=== PATIENT | female | born 1945 | race Caucasian/White ===

== ENCOUNTER 2017-11-03 16:52 | Inpatient (IN) ==
--- NOTE | 2017-11-03 18:00 | Emergency Department Note ---
Disposition Clinical Impression: Anemia, Leukocytosis, Bandemia, Renal injury, Liver lesion, Elevated troponin, Pericardial effusion without cardiac tamponade, Thrombocytosis, Bacteriuria, Generalized weakness Disposition: Admitted As Inpatient Condition: Fair Referrals: Juliana Leal MD [Primary Care Provider] - Forms: ED Satisfaction Letter General Adult HPI - General Chief complaint: ED Dizziness Stated complaint: Multiple complaints Time Seen by Provider: 11/03/17 17:53 - History of Present Illness Pain Scale: 0 - Related Data Home Medications Medication Instructions Recorded Confirmed Acetaminophen [Pain Reliever] 1,000 mg PO BID 11/03/17 11/03/17 Ascorbate Calcium [Vitamin C] 500 mg PO DAILY 11/03/17 11/03/17 Aspirin [Lo-Dose Aspirin EC] 81 mg PO DAILY 11/03/17 11/03/17 Calcium Carbonate [Calcium] 600 mg PO DAILY 11/03/17 11/03/17 Gluc 2Kcl/Chondr/Laurence Hy/Hy AC 2 cap PO BID 11/03/17 11/03/17 [Glucosamine & Chondroitin Cap] Multivitamin [One Daily Essential] 1 tab PO DAILY 11/03/17 11/03/17 Allergies Allergy/AdvReac Type Severity Reaction Status Date / Time cephalexin Allergy Hives Verified 04/13/16 10:56 Past Medical History - Past Medical History Medical history: Reports: arthritis, other Psychiatric history: Reports: no psych history OUTSIDE OPERATOR history: Reports: no OUTSIDE OPERATOR history - Social History Smoking Status: Never smoker Smokeless Tobacco Status: No Alcohol use: Reports: occasionally Drug use: Reports: none Course Vital Signs Temperature 97.5 F L 11/03/17 16:55 Pulse Rate 106 11/03/17 16:55 Respiratory Rate 20 11/03/17 16:55 Blood Pressure 150/74 11/03/17 16:55 O2 Sat by Pulse Oximetry 99 11/03/17 16:55 Temperature 97.5 F L 11/03/17 18:47 Pulse Rate 114 11/03/17 20:50 Respiratory Rate 18 11/03/17 20:50 Blood Pressure 148/80 11/03/17 20:50 O2 Sat by Pulse Oximetry 96 11/03/17 20:50 Oxygen Delivery Oxygen Delivery Room Air Medical Decision Making - Lab Data Result diagrams: 11/03/17 19:24 11/03/17 19:24 Lab Results 11/03/17 11/03/17 11/03/17 Range/Units 19:00 19:14 19:24 WBC 24.7 H (4.3-11.1) K/mcL RBC 2.45 L (3.82-4.97) M/mcL Hgb 7.3 L (11.5-15.4) g/dL Hct 22.5 L (35.3-44.9) % MCV 91.8 (83.0-100.0) fL MCH 29.8 (28.0-33.3) pg MCHC 32.4 (31.6-35.5) g/dL RDW 16.0 H (11.5-14.5) % Plt Count 600 H (140-400) K/mcL MPV 9.5 (9.4-12.4) fL Seg Neutrophils % 86.0 % Band Neutrophils % 6.0 H (0-4) % Lymphocytes % 2.0 % Monocytes % 6.0 % Neutrophils # 22.7 H (1.6-8.9) K/mcL Lymphocytes # 0.5 L (0.6-4.6) K/mcL Monocytes # 1.5 H (0.0-1.3) K/mcL Nucleated RBCs/100 WBC 0.1 H (0) /100 WBC Platelet Estimate Increased H (Normal) Hypochromasia Present A (Not Present) Macrocytosis Present A (Not Present) Sodium (136-145) mEq/L Potassium (3.5-5.1) mEq/L Chloride (98-107) mEq/L Carbon Dioxide (23-29) mEq/L BUN (8-23) mg/dL Creatinine (0.60-1.20) mg/dL Est GFR ( Amer) (> 60) Est GFR (Non-Af Amer) (> 60) BUN/Creatinine Ratio (6-26) Glucose (70-105) mg/dL POC Glucose 126 H (70-99) mg/dL Calculated Osmolality (280-300) Calcium (8.6-10.3) mg/dL Magnesium (1.6-2.6) mg/dL Total Bilirubin (0.3-1.0) mg/dL AST (13-39) Units/L ALT (7-52) Units/L Alkaline Phosphatase (34-104) Units/L Troponin I (< 0.04) ng/mL Serum Total Protein (6.4-8.9) g/dL Albumin (3.5-5.7) g/dL Globulin (2.4-3.5) g/dL Albumin/Globulin Ratio (1.1-2.2) Urine Color Dark Yellow (Yellow) Urine Clarity Hazy A (Clear) Urine pH 5.0 (5.0-8.0) pH Units Ur Specific [place] 1.024 (1.010-1.025) Urine Protein 100 H (Neg-Trace) mg/dL Urine Glucose (UA) Normal (Normal) mg/dL Urine Ketones Trace H (Negative) mg/dL Urine Blood Negative (Negative) Urine Nitrite Negative (Negative) Urine Bilirubin Small H (Negative) Urine Urobilinogen Normal (Normal) mg/dL Ur Leukocyte Esterase Small H (Negative) Urine Microscopic WBC 5-15 H (0-3) per hpf Ur Squamous Epith Cells Many H (None-Few) per lpf Urine Bacteria Moderate H (None-Few) per hpf Hyaline Casts Few (None-Few) per lpf 11/03/17 Range/Units 19:24 WBC (4.3-11.1) K/mcL RBC (3.82-4.97) M/mcL Hgb (11.5-15.4) g/dL Hct (35.3-44.9) % MCV (83.0-100.0) fL MCH (28.0-33.3) pg MCHC (31.6-35.5) g/dL RDW (11.5-14.5) % Plt Count (140-400) K/mcL MPV (9.4-12.4) fL Seg Neutrophils % % Band Neutrophils % (0-4) % Lymphocytes % % Monocytes % % Neutrophils # (1.6-8.9) K/mcL Lymphocytes # (0.6-4.6) K/mcL Monocytes # (0.0-1.3) K/mcL Nucleated RBCs/100 WBC (0) /100 WBC Platelet Estimate (Normal) Hypochromasia (Not Present) Macrocytosis (Not Present) Sodium 132 L (136-145) mEq/L Potassium 4.4 (3.5-5.1) mEq/L Chloride 95 L (98-107) mEq/L Carbon Dioxide 23 (23-29) mEq/L BUN 36 H (8-23) mg/dL Creatinine 1.96 H (0.60-1.20) mg/dL Est GFR ( Amer) 30 L (> 60) Est GFR (Non-Af Amer) 25 L (> 60) BUN/Creatinine Ratio 18 (6-26) Glucose 128 H (70-105) mg/dL POC Glucose (70-99) mg/dL Calculated Osmolality 284 (280-300) Calcium 9.6 (8.6-10.3) mg/dL Magnesium 2.2 (1.6-2.6) mg/dL Total Bilirubin 0.6 (0.3-1.0) mg/dL AST 32 (13-39) Units/L ALT 32 (7-52) Units/L Alkaline Phosphatase 183 H (34-104) Units/L Troponin I 0.06 H* (< 0.04) ng/mL Serum Total Protein 7.2 (6.4-8.9) g/dL Albumin 3.3 L (3.5-5.7) g/dL Globulin 3.9 H (2.4-3.5) g/dL Albumin/Globulin Ratio 0.8 L (1.1-2.2) Urine Color (Yellow) Urine Clarity (Clear) Urine pH (5.0-8.0) pH Units Ur Specific [place] (1.010-1.025) Urine Protein (Neg-Trace) mg/dL Urine Glucose (UA) (Normal) mg/dL Urine Ketones (Negative) mg/dL Urine Blood (Negative) Urine Nitrite (Negative) Urine Bilirubin (Negative) Urine Urobilinogen (Normal) mg/dL Ur Leukocyte Esterase (Negative) Urine Microscopic WBC (0-3) per hpf Ur Squamous Epith Cells (None-Few) per lpf Urine Bacteria (None-Few) per hpf Hyaline Casts (None-Few) per lpf Attestation Statement - Attestation Attestation: I examined this patient and my medical decision-making was reviewed with the Resident Physician. I agree with the documented findings, disposition and treatment plan as described except to the extent set forth below. [id number] time provided Patient states she feels today similar to the way she felt several months ago when she required admission/transfer for weakness, pericardial effusion, elevated troponin, UTI, possible sepsis, anemia. She feels off balance. She appears generally weak on exam. Triage note and vitals reviewed by me. Labs dated 09/19/17 reviewed by me during the patient's most recent ED visit. She states she does have a liver biopsy scheduled in 2 days 20:40: Lab results reviewed by me. I also reviewed the transcribed report of the patient's CT abdomen and pelvis obtained during her most recent ED visit. I also reviewed the discharge summary from her recent transfer to [facility]. Today the patient has multiple laboratory analysis including ongoing renal insufficiency, leukocytosis, anemia, thrombocytosis. Given her recent liver findings on CT I do have a concern for an underlying malignancy. The resident physician discussed this case with the on-call oncologist. We will plan to admit to the medicine service for further evaluation and management
--- NOTE | 2017-11-03 18:24 | Emergency Department Note ---
Disposition Clinical Impression: Bandemia, Liver lesion, Elevated troponin, Pericardial effusion without cardiac tamponade, Thrombocytosis, Bacteriuria, Generalized weakness Anemia Qualifiers: Anemia type: unspecified type Qualified Code(s): D64.9 - Anemia, unspecified Leukocytosis Qualifiers: Leukocytosis type: unspecified Qualified Code(s): D72.829 - Elevated white blood cell count, unspecified Renal injury Qualifiers: Encounter type: initial encounter Laterality: unspecified laterality Qualified Code(s): S37.009A - Unspecified injury of unspecified kidney, initial encounter Disposition: Admitted As Inpatient Condition: Fair Referrals: Juliana Leal MD [Primary Care Provider] - Forms: ED Satisfaction Letter General Adult HPI - General Chief complaint: ED Dizziness Stated complaint: Multiple complaints Time Seen by Provider: 11/03/17 17:53 Source: patient Mode of arrival: wheelchair Limitations: no limitations Nursing Notes Reviewed: Yes Vital Signs Reviewed: Yes - History of Present Illness HPI Narrative: 72-year-old female who until a proximally 6 weeks ago do not have significant past medical history. At that time she presented due to increasing fatigue and was found to have a pericardial effusion, elevated troponin, anemia and a urinary tract infection. She was transferred to [facility]. Unclear what the diagnosis was at [facility] and she was discharged home. They did eventually find a lesion on the liver and she is scheduled later this week for a biopsy of the liver lesion. She presented to the ER today because she is still having continued fatigue and last night at about 3 AM she went to the bathroom and reports that she was "staggering about "and she fell on the ground. She lost control of her bowel and bladder. She states she remembers the entire event. She did not have generalized tonic-clonic movement. She has just been laying on the couch since that time and her called her primary care physician who requested that she come to the emergency department. She has not had a fever and she states that she otherwise feels fine aside from generalized fatigue. She did not hit her head and does not have a headache. Radiation: non-radiation Pain Scale: 0 Consistency: constant Improves with: nothing Worsens with: nothing Associated symptoms: Reports: denies other symptoms Treatments Prior to Arrival: none - Related Data Home Medications Medication Instructions Recorded Confirmed Acetaminophen [Pain Reliever] 1,000 mg PO BID 11/03/17 11/03/17 Ascorbate Calcium [Vitamin C] 500 mg PO DAILY 11/03/17 11/03/17 Aspirin [Lo-Dose Aspirin EC] 81 mg PO DAILY 11/03/17 11/03/17 Calcium Carbonate [Calcium] 600 mg PO DAILY 11/03/17 11/03/17 Gluc 2Kcl/Chondr/Laurence Hy/Hy AC 2 cap PO BID 11/03/17 11/03/17 [Glucosamine & Chondroitin Cap] Multivitamin [One Daily Essential] 1 tab PO DAILY 11/03/17 11/03/17 Allergies Allergy/AdvReac Type Severity Reaction Status Date / Time cephalexin Allergy Hives Verified 04/13/16 10:56 All systems ED: reviewed and negative except as stated. Constitutional: Denies: fever Cardiovascular: Denies: chest pain Respiratory: Denies: cough Gastrointestinal: Denies: abdominal pain, nausea, vomiting Musculoskeletal: Denies: back pain Integumentary: Denies: rash Endocrine: Reports: fatigue Past Medical History - Past Medical History Medical history: Reports: arthritis, other Psychiatric history: Reports: no psych history HOSPITAL MEDICINE DIRECTOR history: Reports: no HOSPITAL MEDICINE DIRECTOR history - Social History Smoking Status: Never smoker Smokeless Tobacco Status: No Alcohol use: Reports: occasionally Drug use: Reports: none Physical Exam - General Limitations: no limitations General appearance: alert, in distress - Head Head exam: atraumatic - Eye Eye exam: Present: normal appearance, PERRL - ENT ENT exam: normal exam - Neck Neck exam: Present: normal inspection - Chest Chest inspection: Present: normal inspection - Respiratory Respiratory exam: Present: normal lung sounds bilaterally. Absent: respiratory distress - Cardiovascular Cardiovascular exam: Present: normal rhythm, tachycardia - Abdominal Exam Abdominal exam: Present: soft, Non-Tender - Extremities Exam Extremities exam: Present: normal inspection - Back Exam Back exam: Present: normal inspection - Neurological Exam Neurological exam: Present: alert, oriented X3 - Skin Skin exam: Present: warm, dry Course Course Narrative: Multiple abnormality seen on her lab work. Troponin is mildly elevated but is significantly less than before. EKG WNL aside from mild tachycardia. No BRBPR. HGB is low, platelets are high, WBC is high, creatinine is high. Bacteria is present on UA, but no other signs of UTI. She denies dysuria. Moderate bacteria, 5-15 WBC. Will culture and not empirically treat. Will not transfuse currently as she states she feels fine, not actively bleeding. Spoke with oncology who will see the patient tomorrow. They request a CT of the chest with contrast if possible tomorrow if her creatinine improves with hydration. Spoke with the hospitalists accept the patient Will make NPO after midnight in case biopsy procedure is moved up. Vital Signs Temperature 97.5 F L 11/03/17 16:55 Pulse Rate 106 11/03/17 16:55 Respiratory Rate 20 11/03/17 16:55 Blood Pressure 150/74 11/03/17 16:55 O2 Sat by Pulse Oximetry 99 11/03/17 16:55 Temperature 97.5 F L 11/03/17 18:47 Pulse Rate 112 11/03/17 19:14 Respiratory Rate 18 11/03/17 19:14 Blood Pressure 165/88 11/03/17 19:14 O2 Sat by Pulse Oximetry 98 11/03/17 19:14 Oxygen Delivery Oxygen Delivery Room Air Medical Decision Making - Medical Records Medical records reviewed: Yes I reviewed the patient's medical records. - Lab Data Lab results reviewed: Yes I reviewed the patient's lab results. Result diagrams: 11/03/17 19:24 11/03/17 19:24 Lab Results 11/03/17 11/03/17 11/03/17 Range/Units 19:00 19:14 19:24 WBC 24.7 H (4.3-11.1) K/mcL RBC 2.45 L (3.82-4.97) M/mcL Hgb 7.3 L (11.5-15.4) g/dL Hct 22.5 L (35.3-44.9) % MCV 91.8 (83.0-100.0) fL MCH 29.8 (28.0-33.3) pg MCHC 32.4 (31.6-35.5) g/dL RDW 16.0 H (11.5-14.5) % Plt Count 600 H (140-400) K/mcL MPV 9.5 (9.4-12.4) fL Nucleated RBCs/100 WBC 0.1 H (0) /100 WBC Sodium (136-145) mEq/L Potassium (3.5-5.1) mEq/L Chloride (98-107) mEq/L Carbon Dioxide (23-29) mEq/L BUN (8-23) mg/dL Creatinine (0.60-1.20) mg/dL Est GFR ( Amer) (> 60) Est GFR (Non-Af Amer) (> 60) BUN/Creatinine Ratio (6-26) Glucose (70-105) mg/dL POC Glucose 126 H (70-99) mg/dL Calculated Osmolality (280-300) Calcium (8.6-10.3) mg/dL Magnesium (1.6-2.6) mg/dL Total Bilirubin (0.3-1.0) mg/dL AST (13-39) Units/L ALT (7-52) Units/L Alkaline Phosphatase (34-104) Units/L Troponin I (< 0.04) ng/mL Serum Total Protein (6.4-8.9) g/dL Albumin (3.5-5.7) g/dL Globulin (2.4-3.5) g/dL Albumin/Globulin Ratio (1.1-2.2) Urine Color Dark Yellow (Yellow) Urine Clarity Hazy A (Clear) Urine pH 5.0 (5.0-8.0) pH Units Ur Specific [place] 1.024 (1.010-1.025) Urine Protein 100 H (Neg-Trace) mg/dL Urine Glucose (UA) Normal (Normal) mg/dL Urine Ketones Trace H (Negative) mg/dL Urine Blood Negative (Negative) Urine Nitrite Negative (Negative) Urine Bilirubin Small H (Negative) Urine Urobilinogen Normal (Normal) mg/dL Ur Leukocyte Esterase Small H (Negative) Urine Microscopic WBC 5-15 H (0-3) per hpf Ur Squamous Epith Cells Many H (None-Few) per lpf Urine Bacteria Moderate H (None-Few) per hpf Hyaline Casts Few (None-Few) per lpf 11/03/17 Range/Units 19:24 WBC (4.3-11.1) K/mcL RBC (3.82-4.97) M/mcL Hgb (11.5-15.4) g/dL Hct (35.3-44.9) % MCV (83.0-100.0) fL MCH (28.0-33.3) pg MCHC (31.6-35.5) g/dL RDW (11.5-14.5) % Plt Count (140-400) K/mcL MPV (9.4-12.4) fL Nucleated RBCs/100 WBC (0) /100 WBC Sodium 132 L (136-145) mEq/L Potassium 4.4 (3.5-5.1) mEq/L Chloride 95 L (98-107) mEq/L Carbon Dioxide 23 (23-29) mEq/L BUN 36 H (8-23) mg/dL Creatinine 1.96 H (0.60-1.20) mg/dL Est GFR ( Amer) 30 L (> 60) Est GFR (Non-Af Amer) 25 L (> 60) BUN/Creatinine Ratio 18 (6-26) Glucose 128 H (70-105) mg/dL POC Glucose (70-99) mg/dL Calculated Osmolality 284 (280-300) Calcium 9.6 (8.6-10.3) mg/dL Magnesium 2.2 (1.6-2.6) mg/dL Total Bilirubin 0.6 (0.3-1.0) mg/dL AST 32 (13-39) Units/L ALT 32 (7-52) Units/L Alkaline Phosphatase 183 H (34-104) Units/L Troponin I 0.06 H* (< 0.04) ng/mL Serum Total Protein 7.2 (6.4-8.9) g/dL Albumin 3.3 L (3.5-5.7) g/dL Globulin 3.9 H (2.4-3.5) g/dL Albumin/Globulin Ratio 0.8 L (1.1-2.2) Urine Color (Yellow) Urine Clarity (Clear) Urine pH (5.0-8.0) pH Units Ur Specific [place] (1.010-1.025) Urine Protein (Neg-Trace) mg/dL Urine Glucose (UA) (Normal) mg/dL Urine Ketones (Negative) mg/dL Urine Blood (Negative) Urine Nitrite (Negative) Urine Bilirubin (Negative) Urine Urobilinogen (Normal) mg/dL Ur Leukocyte Esterase (Negative) Urine Microscopic WBC (0-3) per hpf Ur Squamous Epith Cells (None-Few) per lpf Urine Bacteria (None-Few) per hpf Hyaline Casts (None-Few) per lpf - Radiology Data Radiology results reviewed: Yes I reviewed the patient's radiology results. - EKG Data EKG #1 EKG shows normal: sinus rhythm Rate: tachycardia Rhythm: NSR [place]/QRS: normal Interpretation: no acute changes
[2017-11-03 19:27] LABS: Bilirubin,Urine Small (Negative); Blood,Urine Negative (Negative); Color,Urine Dark Yellow (Yellow); Glucose,Urine (UA) Normal (Normal); Ketones,Urine Trace mg/dL (Negative); Leukocyte Esterase,Urine Small (Negative); Nitrite,Urine Negative (Negative); Protein,Urine 100 mg/dL (Neg-Trace); Specific Gravity,Urine 1.024 (1.010-1.025); Urobilinogen,Urine Normal (Normal)
[2017-11-03 19:30] LABS: Hyaline Casts,Urine Few per lpf (None-Few); Squamous Epithelial Cell,Urine Many per lpf (None-Few)
[2017-11-03 19:51] LABS: Clarity,Urine Hazy (Clear)
[2017-11-03 19:58] LABS: Albumin 3.3 g/dL (3.5-5.7); Albumin/Globulin Ratio 0.8 (1.1-2.2); Bilirubin,Total 0.6 mg/dL (0.3-1.0); Calcium 9.6 mg/dL (8.6-10.3); Globulin 3.9 g/dL (2.4-3.5); Magnesium 2.2 mg/dL (1.6-2.6); Potassium 4.4 mEq/L (3.5-5.1); Total Protein 7.2 g/dL (6.4-8.9)
[2017-11-03 20:00] LABS: Troponin I 0.06 ng/mL (< 0.04)
[2017-11-03 20:03] LABS: Hematocrit 22.5 % (35.3-44.9); Mean Corpuscular HGB Conc 32.4 g/dL (31.6-35.5); Mean Corpuscular Hemoglobin 29.8 pg (28.0-33.3); Mean Corpuscular Volume 91.8 fL (83.0-100.0); Mean Platelet Volume 9.5 fL (9.4-12.4); Monocytes # 1.5 K/mcL (0.0-1.3); Nucleated Red Blood Cells 0.1 /100 WBC (0); Platelet Count 600 K/mcL (140-400); Red Blood Count 2.45 M/mcL (3.82-4.97)
[2017-11-03 20:15] LABS: Hemoglobin 7.3 g/dL (11.5-15.4)
[2017-11-03 20:23] LABS: Bacteria,Urine Moderate per hpf (None-Few)
[2017-11-03 20:38] LABS: Lymphocytes # 0.5 K/mcL (0.6-4.6); Neutrophils # 22.7 K/mcL (1.6-8.9)
[2017-11-03 20:39] LABS: Hypochromasia Present (Not Present); Macrocytosis Present (Not Present); Platelet Estimate Increased (Normal)
[2017-11-03] MEDS ORDERED: 0.9 % Sodium Chloride 500 ML IVC ONE (21:05)
[2017-11-03] MEDS: 0.9 % Sodium Chloride 1,000 ML IVC SCH (22:00)
[2017-11-04 06:46] LABS: Basophils % 0.1 %; Hematocrit 20.2 % (35.3-44.9); Hemoglobin 6.7 g/dL (11.5-15.4); Immature Granulocytes % 0.9 % (0-4); Lymphocytes # 0.8 K/mcL (0.6-4.6); Lymphocytes % 3.5 %; Mean Corpuscular HGB Conc 33.2 g/dL (31.6-35.5); Mean Corpuscular Hemoglobin 30.5 pg (28.0-33.3); Mean Corpuscular Volume 91.8 fL (83.0-100.0); Mean Platelet Volume 9.5 fL (9.4-12.4); Monocytes # 1.9 K/mcL (0.0-1.3); Monocytes % 8.7 %; Neutrophils # 18.9 K/mcL (1.6-8.9); Platelet Count 474 K/mcL (140-400); Red Cell Distribution Width 16.3 % (11.5-14.5); Segmented Neutrophils % 86.8 %
[2017-11-04 07:07] LABS: Albumin 2.8 g/dL (3.5-5.7); Albumin/Globulin Ratio 0.8 (1.1-2.2); Bilirubin,Total 0.7 mg/dL (0.3-1.0); Calcium 8.7 mg/dL (8.6-10.3); Globulin 3.3 g/dL (2.4-3.5); Potassium 4.2 mEq/L (3.5-5.1); Total Protein 6.1 g/dL (6.4-8.9)
[2017-11-04 07:21] LABS: Troponin I 0.04 ng/mL (< 0.04)
--- NOTE | 2017-11-04 08:05 | Internal Med History&Physical ---
Date of Encounter: 11/04/17 Time of Encounter: 03:00 Internal Medicine - H&P: HPI Chief complaint: "Weakness" Admitted From: Emergency Dept Plans for Post Hospital Care: Home History of present illness: Ms. Brendan Collins is a 72 year old female who presented to ED with several week history of generalized weakness. She was last admitted here a little while ago , and during that admission had to be transferred to [facility] for sepsis secondary to UTI. Per patient and , her infection was treated and she was discharged home. She followed up with PCP who got CT abdomen/pelvis, which showed multiple liver lesions. She was scheduled for liver biopsy next. She came to ED today because fatigue is worse and after going to bathroom at 3 AM had a syncopal like episodes. Per she became incontinent of bladder and bowel. She denies LOC. She denies fever, chills, chest pain, SOB, nausea, vomiting, abdominal pain, or diarrhea. She has no focal deficits, just subacute generalized malaise. In the ED, workup showed leukocytosis, anemia, thrombocytopenia, and SATYA. Weakness was a little improved by the time I saw her. ED physician has consulted heme/onc. Past Med Surg Social Fam HX - Past Medical History Attestation: Yes The following information was validated with the patient. Medical history: arthritis, other Psychiatric history: no psych history - Past Surgical History Surgical History: no surgical history - Social History Smoking Status: Never smoker Smokeless Tobacco Status: No Alcohol use: occasionally Drug use: none - Additional Family History Additional family history: No family history per patient Internal Medicine - H&P: Meds Acetaminophen [Pain Reliever] 1,000 mg PO BID 11/03/17 [History] Ascorbate Calcium [Vitamin C] 500 mg PO DAILY 11/03/17 [History] Aspirin [Lo-Dose Aspirin EC] 81 mg PO DAILY 11/03/17 [History] Calcium Carbonate [Calcium] 600 mg PO DAILY 11/03/17 [History] Gluc 2Kcl/Chondr/Laurence Hy/Hy AC [Glucosamine & Chondroitin Cap] 2 cap PO BID [History] Multivitamin [One Daily Essential] 1 tab PO DAILY 11/03/17 [History] 3 Allergy/AdvReac Type Severity Reaction Status Date / Time cephalexin Allergy Hives Verified 04/13/16 10:56 All Systems PM: A 10-system review of systems was performed and is negative for pertinent findings except as documented above in the HPI. - Constitutional Constitutional: fatigue, falls, lethargy, malaise, weakness, no anorexia, no chills, no fever(s), no night sweats, no weight gain, no weight loss - EENT Eyes: no blurry vision, no diplopia, no discharge, no dry eye, no loss of vision , no pain, no photophobia, no other visual disturbances Ears: no decreased hearing, no ear pain, no tinnitus Nose, mouth and throat: no dry mouth, no dysphagia, no epistaxis, no mouth lesions, no mouth pain, no nasal congestion, no nasal discharge, no neck mass, no neck pain, no post-nasal drip, no sinus pain, no sinus pressure, no sore throat - Breasts Breasts: no change in shape, no mass, no pain, no nipple discharge, no skin changes - Cardiovascular Cardiovascular ROS IM: lightheadedness, no chest pain, no claudication, no diaphoresis, no dyspnea, no dyspnea on exertion, no edema, no palpitations, no syncope - Respiratory Respiratory: no cough, no dyspnea, no hemoptysis, no dyspnea on exertion, no wheezing, no chest congestion, no excessive phlegm production - Gastrointestinal Gastrointestinal: no abdominal pain, no change in bowel habits, no coffee ground emesis, no constipation, no cramping, no diarrhea, no dysphagia, no heartburn, no hematemesis, no hematochezia, no loose stools, no melena, no nausea, no vomiting - Genitourinary Genitourinary: no dysuria, no flank pain, no hematuria, no urinary frequency, no urinary hesitancy, no urinary incontinence, no urinary urgency - Musculoskeletal Musculoskeletal ROS IM: no arthralgias, no atrophy, no back pain, no deformity, no joint swelling, no limited range of motion, no muscle cramps, no muscle weakness, no myalgias, no neck pain, no stiffness - Integumentary Integumentary IM: no erythema, no new lesions, no rash, no skin ulcer, no jaundice - Neurological Neurological ROS: dizziness, frequent falls, weakness, no abnormal gait, no abnormal hearing, no abnormal movements, no abnormal speech, no behavioral changes, no confusion, no focal weakness, no headache(s), no vertigo - Psychiatric Psychiatric: no anxiety, no behavioral changes, no confusion, no depression, no irritability, no mood swings - Endocrine Endocrine IM: fatigue, no cold intolerance, no heat intolerance, no polydipsia, no polyphagia, no polyuria - Hematologic/Lymphatic Hematologic/Lymphatic: no easy bleeding, no easy bruising, no lymphadenopathy - Constitutional Vitals: Temp Pulse Resp BP Pulse Ox 98.3 F 110 14 162/79 98 11/04/17 06:31 11/04/17 06:31 11/04/17 06:31 11/04/17 06:31 11/04/17 06:31 General appearance: Present: cooperative, A&O X 3, pleasant, no acute distress, answers questions appropriately - Head Head exam: Present: atraumatic, normal inspection, normocephalic - Eye Eye exam: Present: EOMI, normal appearance, PERRL. Absent: conjunctival injection, nystagmus, scleral icterus - ENT ENT exam: Present: mucous membranes moist, normal external ear exam, normal oropharynx - Neck Neck exam general surgery: Present: supple, trachea midline. Absent: lymphadenopathy, tenderness, thyromegaly - Respiratory Respiratory exam: Present: CTAB. Absent: accessory muscle use, rales, rhonchi, wheezes Additional comments: Normal WOB - Cardiovascular Cardiovascular exam: Present: RRR, +S1, +S2. Absent: diastolic murmur, gallop, rubs, systolic murmur - GI/Abdominal GI/Abdominal exam: Present: normal bowel sounds, soft. Absent: distended, hepatomegaly, mass, splenomegaly, tenderness - Neurological Exam Neurological exam: Present: alert, CN II-XII intact, oriented X3, no focal deficits, strengths equal and symetr throughout. Absent: altered, motor sensory deficit, facial droop, speech deficit - Psychiatric Psychiatric exam: Present: normal affect, normal mood. Absent: agitated, anxious, depressed - Skin Skin exam: Present: dry, intact, warm. Absent: cyanosis, rash Internal Med - H&P Results - Labs CBC & Chem 7: 11/04/17 06:25 11/04/17 06:25 - VTE Reasons for not Prescribing Prophylaxis: Medical contraindication (Anemia, Thrombocytopenia) - Assessment and plan (1) Generalized weakness Current Visit: Yes Status: Acute Assessment and plan: Subacute issue. May be multifactorial and related to her blood dyscrasias, SATYA , and/or ?cancer. Addressing underlying conditions as per below. (2) Anemia Current Visit: Yes Status: Acute Assessment and plan: Repeat CBC in AM. Transfuse if Hgb < 7.0. Heme/onc consulted; appreciate their input. Qualifiers: Anemia type: other cause Other causes of anemia: other cause, not classified Qualified Code(s): D64.89 - Other specified anemias (3) Elevated troponin Current Visit: Yes Status: Acute Assessment and plan: No chest pain. Trend troponin x 3. Continue to monitor. (4) Leukocytosis Current Visit: Yes Status: Acute Assessment and plan: Heme/onc consulted; appreciate their input. Qualifiers: Leukocytosis type: other Qualified Code(s): D72.828 - Other elevated white blood cell count (5) Liver lesion Current Visit: Yes Status: Acute Assessment and plan: Heme/onc consulted; appreciate their input. ED physician already consulted IR for possible biopsy of liver lesions. Will keep NPO until they see. (6) Pericardial effusion without cardiac tamponade Current Visit: Yes Status: Acute Assessment and plan: Will monitor. Elevated troponin may be due to this. Will observe overnight and consider cardiology/CT surgery consult in morning if no improvement and/or progression to tamponade. (7) Thrombocytosis Current Visit: Yes Status: Acute Assessment and plan: Heme/onc consulted; appreciate their input. - Time Spent With Patient Total time spent is greater than 50% in coordination of care (as documented) at patient's floor/unit and/or counseling patient: less than 15 minutes
[2017-11-04 08:26] LABS: INR 1.5; Prothrombin Time 15.8 Seconds (9.4-12.1)
[2017-11-04] MEDS: Aspirin Enteric Coated 81 MG Tablet PO SCH (08:42)
[2017-11-04] MEDS: [UNRECOGNIZED DRUG - OTHER] PO SCH (08:49)
--- NOTE | 2017-11-04 08:50 | Electrocardiograph Report ---
[facility] Test Date: 2017-11-03 Pat Name: Livia Collins Department: 103 Room: 2S7 Gender: F [employer]: : [id number] Requested By: Robbin Brown Order Number: [id number] Reading MD: Jamil Grimes Measurements Intervals [place] Rate: 111 P: 0 LA: 132 QRS: -40 QRSD: 97 T: 82 QT: 289 QTc: 354 Interpretive Statements SINUS TACHYCARDIA MARKED LEFT AXIS DEVIATION [QRS AXIS < -30] LEFT VENTRICULAR HYPERTROPHY AND ST-T CHANGE [VOLTAGE CRITERIA PLUS ST/T ABNORMALITY] Electronically Signed On 11-04-2017 8:48:10 EDT by Jamil Grimes
[2017-11-04] MEDS ORDERED: 0.9 % Sodium Chloride 500 ML ONE (09:18)
[2017-11-04] MEDS ORDERED: *HR* FentaNYL (PF) 100 MCG/2 ML VIAL IVP ONE (09:19)
[2017-11-04] MEDS ORDERED: *HR* Midazolam HCl 2 MG/2 ML VIAL IVP ONE (09:19)
--- NOTE | 2017-11-04 10:12 | IR Procedure Note ---
Date of procedure: 11/04/17 Consent Obtained: Verbal consent, Written consent Timeout: Correct patient and procedure verified, Correct site verified, Time out performed, Skin prep completed Local anesthetic: Lidocaine 1% Indications: Liver mass Procedure Performed: CT guided biopsy and drain placement Was there an rehabilitation assistant present: No Site/Technique: CT guided hepatic mass biopsy and drainage Results/Findings: large hepatic abscess. 12 Sami drain placed Estimated blood loss (cc): 2 Complications: None; Tolerated procedure well Post Procedure Treatment Plan: Continue inpatient care Specimen: 100 cc pus
[2017-11-04] MEDS ORDERED: Ibuprofen 400 MG TABLET PO PRN (10:45)
[2017-11-04] MEDS ORDERED: Naloxone 0.4 MG/ML INJ IVP PRN (10:45)
[2017-11-04] MEDS ORDERED: *HR* OxyCODONE Immed Rel 5 MG TABLET PO PRN (10:45)
[2017-11-04] MEDS ORDERED: *HR* HYDROcodone/Acet 5/325 mg TABLET PO PRN (10:45)
[2017-11-04] MEDS: Multivit/Ca/Min/Fe/FA 1 TAB TABLET PO SCH (12:44)
[2017-11-04] MEDS: Ascorbic Acid 500 MG TABLET PO SCH (12:44)
[2017-11-04] MEDS: Piperacillin/Tazobactam 3.375 GM in 0.9 % Sodium Chloride Mini Bag 100 ML IVPB SCH ×2 (12:44→18:17)
[2017-11-04] MEDS ORDERED: 0.9 % Sodium Chloride 250 ML ONE (13:49)
--- NOTE | 2017-11-04 15:17 | Internal Med Progress Note ---
Date of Encounter: 11/04/17 Time of Encounter: 15:17 - Assessment and plan (1) Pyogenic liver abscess Current Visit: Yes Status: Acute Assessment and plan: Cultures are pending. Currently on IV Zosyn. Appreciate ID input. Oxycodone added for pain control from the drain. Further plan following results of studies from today. (2) Severe sepsis Current Visit: Yes Status: Acute Assessment and plan: Currently afebrile. WBC increased. BP has been stable. On IV Zosyn and cultures pending. (3) Anemia Current Visit: Yes Status: Acute Assessment and plan: Hemoglobin 6.7 today. Blood transfusion ordered. Some blood noted in drain. Stool guiac ordered as well. Qualifiers: Anemia type: other cause Other causes of anemia: other cause, not classified Qualified Code(s): D64.89 - Other specified anemias (4) Pericardial effusion without cardiac tamponade Current Visit: Yes Status: Acute Assessment and plan: No evidence of tamponade at this time. Following. (5) Thrombocytosis Current Visit: Yes Status: Acute Assessment and plan: Reactive. (6) Generalized weakness Current Visit: Yes Status: Acute Assessment and plan: Most likely related to infection. - Time Spent With Patient Total time spent is greater than 50% in coordination of care (as documented) at patient's floor/unit and/or counseling patient: - Subjective Interval history: Ms Brendan Collins is currently admitted for liver abscess and severe sepsis. She remains moderate to high risk due to potential for worsening clinical status. Ms Brendan Collins is having pain from the liver drain. Had temp this AM but none further. Blood cx done this. Studies from liver abscess pending. No CP or SOB. No other symptoms. - Constitutional Vitals: Temp Pulse Resp BP Pulse Ox 98.8 F 95 18 139/70 92 11/04/17 12:23 11/04/17 12:23 11/04/17 12:23 11/04/17 12:23 11/04/17 12:23 General appearance: Present: cooperative, A&O X 3, pleasant, answers questions appropriately - Head Head exam: Present: normocephalic - Eye Eye exam: Present: conjuntiva pink - ENT ENT exam: Present: mucous membranes dry - Respiratory Respiratory exam: Present: CTAB. Absent: rales, rhonchi, wheezes - Cardiovascular Cardiovascular exam: Present: RRR. Absent: tachycardia - GI/Abdominal GI/Abdominal exam: Present: soft, tenderness - Extremities Exam Extremities exam: Present: warm. Absent: tenderness - Neurological Exam Neurological exam: Present: alert, oriented X3, no focal deficits - Skin Skin exam: Present: dry, warm Internal Medicine: Result - Labs CBC & Chem 7: 11/04/17 06:25 11/04/17 06:25 Labs: Cardiac Enzymes 11/04/17 Range/Units 11:41 Troponin I 0.03 (< 0.04) ng/mL - ABG Interpretation ABG results: PT/INR, D-dimer PT 15.8 Seconds (9.4-12.1) H 11/04/17 07:49 - Impressions Impressions Chest X-Ray 11/04/17 08:46 IMPRESSION: No radiographic evidence of consolidative pneumonia. D/ / 11/04/2017 09:25:52 Rohit Mccullough MD / [email or web address] Interpreting Provider: Rohit Mccullough MD - VTE Reasons for not Prescribing Prophylaxis: Medical contraindication (Anemia, Thrombocytopenia) Consult Discharge Plan - Plan Referrals: Juliana Leal MD [Primary Care Provider] -
[2017-11-04] MEDS ORDERED: OXYCODONE Oral CONC 10 MG/0.5 ML ORAL.SYG SL PRN (15:18)
--- NOTE | 2017-11-04 15:28 | Infectious Disease Consult ---
Date of Encounter: 11/04/17 Time of Encounter: 15:27 Assessment and Plan (1) Pyogenic liver abscess Status: Acute Assessment and plan: Initially seen on his CT abdomen and pelvis in September [address] scan reveals worsening of the lesion Status post drainage and biopsy by IR on 11/01/17 100 mL of purulence removed Gram stain reveals no organism: Cultures are pending Patient started empirically on Zosyn. This is a pyogenic liver abscess I would expect some bacteria to grow specially 100 mL of purulence. The fact the Gram stain and bacteria are not growing makes me concerned for amoebic liver abscess versus Echinococcus Patient does have 4 dogs so it does put her at some risk. I will discuss with radiology and if they think there is a Hydatid cysts , there is an index of suspicion I will order for amoeba serology and Echinococcus serology. Await pathology report on Continue Zosyn for now Dose adjust based on creatinine clearance: Pharmacy to help (2) Severe sepsis Status: Acute Assessment and plan: Patient had 3 SIRS criteria and and organ damage Likely source is pyogenic liver abscess (3) Pericardial effusion without cardiac tamponade Status: Acute (4) Thrombocytosis Status: Acute Assessment and plan: Likely reactive (5) CAD (coronary artery disease) Status: Acute Qualifiers: Coronary Disease-Associated Artery/Lesion type: unspecified vessel or lesion type Associated angina: with unspecified angina Qualified Code(s): I25.119 - Atherosclerotic heart disease of [place] coronary artery with unspecified angina pectoris Infectious Disease HPI - Data of Consult Patient: new to practice Consult date: 11/04/17 Requesting Physician: Gricelda Gutierrez MD Primary Care Provider: Juliana Leal - Consult Narrative Reason for consult: liver abscess History of present illness: Ms. Brendan Collins is a 72 year old female Patient is a 72-year-old woman who presented to [facility] emergency department on November 03 with weakness, we are consult at today for liver abscess. Patient with past medical history mentioned below was seen by our emergency department back on November 19 where she was feeling weak and tired and had sepsis. He should also had mildly elevated hepatic enzymes acute kidney injury and troponin leak. Patient had chest x-ray which was negative, had a head CT which was negative and a VQ scan had low probability of a PE. Patient had a CT abdomen pelvis which showed moderate pericardial effusion. Patient also had a 5.8 cm liver lesion with uncertain etiology because the patient had no contrast. It also revealed nonobstructive bilateral renal stones. Patient was transferred to [facility] for further evaluation. Reviewing records from [facility] reveals the patient was admitted with sepsis likely secondary to urinary tract infection. Patient had urine and blood cultures both which came back negative. Patient urine culture from [facility] emergency department was positive for Klebsiella species that was resistant to ampicillin and intermediate to nitrofurantoin. Patient was discharged from [facility] on ciprofloxacin to finish a 10 day course. Patient apparently was followed up by her PCP and had a repeat CT abdomen pelvis which showed multiple liver lesions. Apparently patient woke up at 3 AM to use the bathroom and she had a syncopal-like episode. Patient also became incontinent of bladder and bowel. Apparently there was no loss of conscious. There was no headache, no chest pain no palpitations. Patient had no fevers or chills. No shortness of breath. No nausea vomiting abdominal pain or diarrhea. No urinary symptoms. Since admission patient has been febrile with a MAXIMUM TEMPERATURE of 101.6 Fahrenheit patient has also been tachycardic with a heart rate as high as 113. Patient presenting WBC was 24.7 thousand with 86% neutrophils and 6 finish send bands. Patient was also noted to be in acute kidney injury with creatinine up to 1.96 a urinalysis was obtained and it showed small leukocyte esterase WBC of 5-[address] abdomen pelvis revealed a large hepatic mass that was evaluated by interventional radiology and they drained it and put her KATHE drain in. 100 mL of purulence was aspirated. Cultures were sent. Gram stain on the fluid shows no bacteria. Cultures are still pending. Pathology is also pending. Patient was started on Zosyn, we were asked to evaluate the patient think further recommendations. Patient laying in bed appears pretty lethargic. I am not sure if he just received some pain medications. She is getting a blood transfusion. Not the best historian. She does tell me that she has 4 dogs at home. Denies any recent travel. CC: Gricelda Gutierrez MD Past Med Surg Social Fam HX - Past Medical History Medical history: arthritis, other Psychiatric history: no psych history - Past Surgical History Surgical History: no surgical history - Social History Smoking Status: Never smoker Smokeless Tobacco Status: No Alcohol use: occasionally Drug use: none Infectious Disease-CN:Meds Acetaminophen [Pain Reliever] 1,000 mg PO BID 11/03/17 [History] Ascorbate Calcium [Vitamin C] 500 mg PO DAILY 11/03/17 [History] Aspirin [Lo-Dose Aspirin EC] 81 mg PO DAILY 11/03/17 [History] Calcium Carbonate [Calcium] 600 mg PO DAILY 11/03/17 [History] Gluc 2Kcl/Chondr/Laurence Hy/Hy AC [Glucosamine & Chondroitin Cap] 2 cap PO BID [History] Multivitamin [One Daily Essential] 1 tab PO DAILY 11/03/17 [History] 3 Allergy/AdvReac Type Severity Reaction Status Date / Time cephalexin Allergy Hives Verified 04/13/16 10:56 Review of systems: 10 point review of systems done, negative other for what is mentioned in history of present illness. Exam - Constitutional Vitals: Temp Pulse Resp BP Pulse Ox 98.8 F 95 18 139/70 92 11/04/17 12:23 11/04/17 12:23 11/04/17 12:23 11/04/17 12:23 11/04/17 12:23 General appearance: no acute distress, no febrile - Head Head exam: Present: atraumatic, normocephalic - Eye Eye exam: Present: EOMI, PERRL, sclera anicteric - ENT ENT exam: Present: mucous membranes dry Additional comments: No oral lesions noted - Neck Neck exam: Present: full ROM. Absent: thyromegaly - Respiratory Respiratory exam: Present: CTAB. Absent: wheezes - Cardiovascular Cardiovascular exam: Present: RRR, +S1, +S2 - GI/Abdominal Additional comments: Nontender. Bowel sounds audible. KATHE drain right upper abdomen noted with bloody drainage - Extremities Exam Extremities exam: Present: normal inspection. Absent: joint swelling, pedal edema - Neurological Exam Neurological exam: Present: alert, oriented X3. Absent: speech deficit - Skin Skin exam: Present: normal color. Absent: rash Infectious Disease CN: Results - Labs CBC & Chem 7: 11/04/17 06:25 11/04/17 06:25 Cultures: Cultures 11/04/17 07:00 Body Fluid Culture - Preliminary Other-Specify in Comments Serology: Serology 11/04/17 11/04/17 Range/Units 11:41 07:49 PT 15.8 H (9.4-12.1) Seconds INR 1.5 Troponin I 0.03 (< 0.04) ng/mL - VTE Reasons for not Prescribing Prophylaxis: Medical contraindication (Anemia, Thrombocytopenia) Consult Discharge Plan - Plan Referrals: Juliana Leal MD [Primary Care Provider] -
[2017-11-04] MEDS: 0.9 % Sodium Chloride 1,000 ML IVC SCH (15:38)
[2017-11-04] MEDS: OXYCODONE Oral CONC 10 MG/0.5 ML ORAL.SYG SL PRN (18:17)
--- NOTE | 2017-11-04 20:58 | Event Note ---
Date of Encounter: 11/04/17 Time of Encounter: 20:07 Was paged by nurse about troponin of 0.04. No chest pain. Patient has no complaints. I went down and saw patient. She states that she is doing "fine." Last troponin was 0.03, but admission troponin was 0.06. Looks adynamic and she has non-cardiac reasons for elevation. Will monitor closely. Addressed all of patient's and family's questions. There are in agreement with plan of care.
[2017-11-05] MEDS: [UNRECOGNIZED DRUG - OTHER] PO SCH ×3 (00:28→22:18)
[2017-11-05 01:15] LABS: Basophils % 0.1 %; Hematocrit 23.8 % (35.3-44.9); Hemoglobin 7.5 g/dL (11.5-15.4); Immature Granulocytes % 0.5 % (0-4); Lymphocytes # 0.6 K/mcL (0.6-4.6); Lymphocytes % 3.6 %; Mean Corpuscular HGB Conc 31.5 g/dL (31.6-35.5); Mean Corpuscular Volume 91.9 fL (83.0-100.0); Mean Platelet Volume 9.4 fL (9.4-12.4); Monocytes # 0.5 K/mcL (0.0-1.3); Monocytes % 2.8 %; Platelet Count 496 K/mcL (140-400); Red Blood Count 2.59 M/mcL (3.82-4.97); Red Cell Distribution Width 16.1 % (11.5-14.5)
[2017-11-05 01:20] LABS: Neutrophils # 15.5 K/mcL (1.6-8.9)
[2017-11-05 01:34] LABS: Albumin 2.5 g/dL (3.5-5.7); Albumin/Globulin Ratio 0.7 (1.1-2.2); Bilirubin,Total 1.6 mg/dL (0.3-1.0); Calcium 8.5 mg/dL (8.6-10.3); Globulin 3.4 g/dL (2.4-3.5); Magnesium 2.2 mg/dL (1.6-2.6); Potassium 4.4 mEq/L (3.5-5.1); Total Protein 5.9 g/dL (6.4-8.9)
[2017-11-05 01:38] LABS: Platelet Estimate Increased (Normal)
[2017-11-05 01:39] LABS: Hypochromasia Present (Not Present); Polychromasia 1+ (Not Present)
[2017-11-05] MEDS: Piperacillin/Tazobactam 3.375 GM in 0.9 % Sodium Chloride Mini Bag 100 ML IVPB SCH ×3 (02:33→17:05)
[2017-11-05] MEDS: 0.9 % Sodium Chloride 1,000 ML IVC SCH ×3 (02:34→22:28)
[2017-11-05] MEDS: OXYCODONE Oral CONC 10 MG/0.5 ML ORAL.SYG SL PRN (02:49)
--- NOTE | 2017-11-05 08:38 | Internal Med Progress Note ---
<Sam Castaneda - Last Filed: 11/05/17 16:28> Date of Encounter: 11/05/17 Time of Encounter: 08:25 - Assessment and plan (1) Severe sepsis Current Visit: Yes Status: Acute Assessment and plan: Severe sepsis, improved She did experience MAXIMUM TEMPERATURE 102.1 Remained with normal heart rate and normal blood pressure overnight Draining serosanguineous fluid per wound, no obvious purulence Continue Zosyn (2) Pyogenic liver abscess Current Visit: Yes Status: Acute Assessment and plan: Cultures are pending. Currently on IV Zosyn. Appreciate ID input. Oxycodone added for pain control from the drain. (3) Pericardial effusion without cardiac tamponade Current Visit: Yes Status: Acute Assessment and plan: No evidence of tamponade at this time. Following. (4) Anemia Current Visit: Yes Status: Acute Assessment and plan: Hemoglobin 7.5 today Recieved 1U PRBC yesterday, no acute complications There is serosanguinous fluid per drain We will order labs to workup anemia tonight Qualifiers: Anemia type: other cause Other causes of anemia: other cause, not classified Qualified Code(s): D64.89 - Other specified anemias (5) Thrombocytosis Current Visit: Yes Status: Acute Assessment and plan: Reactive, improved (6) Generalized weakness Current Visit: Yes Status: Acute Assessment and plan: Most likely related to infection, but also lack of food Ordered nutrition consult (7) Poor appetite Current Visit: Yes Status: Acute Assessment and plan: Poor appetite, likely secondary to infection Consult to nutrition for supplementation Ensure TID (8) DVT prophylaxis Current Visit: Yes Status: Acute - Time Spent With Patient Total time spent is greater than 50% in coordination of care (as documented) at patient's floor/unit and/or counseling patient: - Subjective Interval history: The patient is seen and examined at bedside. She remains nauseated without any appetite. She otherwise is feeling somewhat better, and says that her pain is well controlled. - Constitutional Vitals: Temp Pulse Resp BP Pulse Ox 97.8 F 77 17 104/58 97 11/05/17 06:49 11/05/17 06:49 11/05/17 06:49 11/05/17 06:49 11/05/17 06:49 General appearance: Present: cooperative, A&O X 3, pleasant, answers questions appropriately Exam: Gen: Vitals noted. No acute distress. HEENT: oropharynx clear, Normocephalic, atraumatic Neck: Supple. No adenopathy. Cardiac: RRR, no murmur, +S1/S2 Pulmonary: CTA bilaterally, no wheezes, rales or rhonchi, equal chest expansion Abdomen: soft, nontender, no guarding Back: Nontender throughout. MSK: ROM intact, no joint swelling noted Extremities: no BLE edema, nontender calf, no cyanosis or clubbing Neuro: moves all extremities, no focal deficits Psych: Appropriate mood and behavior Internal Medicine: Result - Labs CBC & Chem 7: 11/05/17 01:05 11/05/17 01:05 Labs: Short CBC 11/05/17 Range/Units 01:05 WBC 16.7 H (4.3-11.1) K/mcL Hgb 7.5 L (11.5-15.4) g/dL Hct 23.8 L (35.3-44.9) % Plt Count 496 H (140-400) K/mcL Neutrophils # 15.5 H (1.6-8.9) K/mcL BMP 11/05/17 01:05 Sodium 133 L Potassium 4.4 Chloride 102 Carbon Dioxide 21 L BUN 32 H Creatinine 1.70 H Glucose 123 H Calcium 8.5 L Cardiac Enzymes 11/04/17 11/04/17 Range/Units 11:41 18:46 Troponin I 0.03 0.04 H* (< 0.04) ng/mL Liver Function 11/05/17 Range/Units 01:05 Total Bilirubin 1.6 H (0.3-1.0) mg/dL AST 21 (13-39) Units/L ALT 26 (7-52) Units/L Alkaline Phosphatase 160 H (34-104) Units/L Albumin 2.5 L (3.5-5.7) g/dL - ABG Interpretation ABG results: PT/INR, D-dimer PT 15.8 Seconds (9.4-12.1) H 11/04/17 07:49 - Impressions Impressions Chest X-Ray 11/04/17 08:46 IMPRESSION: No radiographic evidence of consolidative pneumonia. D/ / 11/04/2017 09:25:52 Rohit Mccullough MD / bcarter Interpreting Provider: Rohit Mccullough MD - VTE Reasons for not Prescribing Prophylaxis: Medical contraindication (Anemia, Thrombocytopenia) Consult Discharge Plan - Plan Referrals: Juliana Leal MD [Primary Care Provider] - <Hugh Herrera - Last Filed: 11/05/17 19:09> Date of Encounter: 11/05/17 - Assessment and plan (1) Pyogenic liver abscess Current Visit: Yes Status: Acute (2) Severe sepsis Current Visit: Yes Status: Acute (3) Anemia Current Visit: Yes Status: Acute Qualifiers: Anemia type: other cause Other causes of anemia: other cause, not classified Qualified Code(s): D64.89 - Other specified anemias (4) Pericardial effusion without cardiac tamponade Current Visit: Yes Status: Acute (5) Thrombocytosis Current Visit: Yes Status: Acute (6) Generalized weakness Current Visit: Yes Status: Acute (7) Poor appetite Current Visit: Yes Status: Acute (8) DVT prophylaxis Current Visit: Yes Status: Acute - Time Spent With Patient Total time spent is greater than 50% in coordination of care (as documented) at patient's floor/unit and/or counseling patient: - Constitutional Vitals: Temp Pulse Resp BP Pulse Ox 97.6 F 82 16 109/62 97 11/05/17 15:58 11/05/17 15:58 11/05/17 15:58 11/05/17 15:58 11/05/17 15:58 Internal Medicine: Result - Labs CBC & Chem 7: 11/05/17 01:05 11/05/17 01:05 Labs: Short CBC 11/05/17 Range/Units 01:05 WBC 16.7 H (4.3-11.1) K/mcL Hgb 7.5 L (11.5-15.4) g/dL Hct 23.8 L (35.3-44.9) % Plt Count 496 H (140-400) K/mcL Neutrophils # 15.5 H (1.6-8.9) K/mcL BMP 11/05/17 01:05 Sodium 133 L Potassium 4.4 Chloride 102 Carbon Dioxide 21 L BUN 32 H Creatinine 1.70 H Glucose 123 H Calcium 8.5 L Cardiac Enzymes 11/04/17 Range/Units 18:46 Troponin I 0.04 H* (< 0.04) ng/mL Liver Function 11/05/17 Range/Units 01:05 Total Bilirubin 1.6 H (0.3-1.0) mg/dL AST 21 (13-39) Units/L ALT 26 (7-52) Units/L Alkaline Phosphatase 160 H (34-104) Units/L Albumin 2.5 L (3.5-5.7) g/dL - ABG Interpretation ABG results: PT/INR, D-dimer PT 15.8 Seconds (9.4-12.1) H 11/04/17 07:49 - Impressions Impressions Chest X-Ray 11/04/17 08:46 IMPRESSION: No radiographic evidence of consolidative pneumonia. D/ / 11/04/2017 09:25:52 Rohit Mccullough MD / fab Interpreting Provider: Rohit Mccullough MD - Attending Attestation I examined this patient and my medical decision-making was reviewed with the Resident Physician on 11/05/17. I agree with the documented findings, disposition and treatment plan as described except to the extent set forth below. Ms Brendan Collins is currently admitted for liver abscess. She remains moderate to high risk due to potential for worsening clinical status. Ms Brendan Collins had fever last night but none today. She is overall feeling better. No GI issues. Appetite fair. Exam alert Comfortable Mucus membranes dry Heart reg No wheeze still with drainage from liver I/P 1. Severe sepsis 2. Liver abscess Further diagnoses and plan as above.
[2017-11-05] MEDS: Multivit/Ca/Min/Fe/FA 1 TAB TABLET PO SCH (10:40)
[2017-11-05] MEDS: Aspirin Enteric Coated 81 MG Tablet PO SCH (10:40)
[2017-11-05] MEDS: Ascorbic Acid 500 MG TABLET PO SCH (10:40)
--- NOTE | 2017-11-05 17:29 | Infectious Disease Progress No ---
Date of Encounter: 11/05/17 Time of Encounter: 17:25 - Assessment and Plan (1) Pyogenic liver abscess Current Visit: Yes Status: Acute Initially seen on his CT abdomen and pelvis in September [address] scan reveals worsening of the lesion Status post drainage and biopsy by IR on 11/01/17 100 mL of purulence removed Gram stain reveals no organism: Cultures are pending Patient started empirically on Zosyn. This is a pyogenic liver abscess I would expect some bacteria to grow specially 100 mL of purulence. The fact the Gram stain and bacteria are not growing makes me concerned for amoebic liver abscess versus Echinococcus I did speak with pathology and they saw some atypical cells but final pathology is pending. I also asked them to and Gram stain, GMS and AFB. I also reviewed the CT with radiology to see if the patient had obvious hydatid cyst but they said it does not appear that way. Patient does have 4 dogs so it does put her at some risk. I check Echinococcus serology, Entamoeba histolytica serology and antigen Await pathology report on Continue Zosyn for now Dose adjust based on creatinine clearance: Pharmacy to help (2) Severe sepsis Current Visit: Yes Status: Acute Patient had 3 SIRS criteria and and organ damage Likely source is pyogenic liver abscess (3) Pericardial effusion without cardiac tamponade Current Visit: Yes Status: Acute (4) Thrombocytosis Current Visit: Yes Status: Acute (5) CAD (coronary artery disease) Current Visit: Yes Status: Acute Qualifiers: Coronary Disease-Associated Artery/Lesion type: unspecified vessel or lesion type Associated angina: with unspecified angina Qualified Code(s): I25.119 - Atherosclerotic heart disease of [place] coronary artery with unspecified angina pectoris - Subjective Interval history: Patient seen and examined. Doing much better clinically today. Yesterday she was very groggy today she is arousable pleasant on the phone with no signs of acute distress. Patient tells me that she has lost about 15 pounds in the last 2-1/2 months. Weight loss was not intentional. Infect Dis PN-Objective Data - Labs CBC & Chem 7: 11/05/17 01:05 11/05/17 01:05 Labs: Laboratory Results - last 24 hr 11/04/17 11/04/17 11/04/17 07:53 11:41 18:46 WBC RBC Hgb Hct MCV MCH MCHC RDW Plt Count MPV Immature Gran % Seg Neutrophils % Lymphocytes % Monocytes % Eosinophils % Basophils % Neutrophils # Lymphocytes # Monocytes # Eosinophils # Basophils # Platelet Estimate Polychromasia Hypochromasia Sodium Potassium Chloride Carbon Dioxide BUN Creatinine Est GFR ( Amer) Est GFR (Non-Af Amer) BUN/Creatinine Ratio Glucose POC Glucose 122 H Calculated Osmolality Calcium Magnesium Total Bilirubin AST ALT Alkaline Phosphatase Troponin I 0.04 H* Serum Total Protein Albumin Globulin Albumin/Globulin Ratio Crossmatch See Detail 11/05/17 11/05/17 01:05 01:05 WBC 16.7 H RBC 2.59 L Hgb 7.5 L Hct 23.8 L MCV 91.9 MCH 29.0 MCHC 31.5 L RDW 16.1 H Plt Count 496 H MPV 9.4 Immature Gran % 0.5 Seg Neutrophils % 93.0 Lymphocytes % 3.6 Monocytes % 2.8 Eosinophils % 0.0 Basophils % 0.1 Neutrophils # 15.5 H Lymphocytes # 0.6 Monocytes # 0.5 Eosinophils # 0.0 Basophils # 0.0 Platelet Estimate Increased H Polychromasia 1+ A Hypochromasia Present A Sodium 133 L Potassium 4.4 Chloride 102 Carbon Dioxide 21 L BUN 32 H Creatinine 1.70 H Est GFR ( Amer) 36 L Est GFR (Non-Af Amer) 30 L BUN/Creatinine Ratio 19 Glucose 123 H POC Glucose Calculated Osmolality 284 Calcium 8.5 L Magnesium 2.2 Total Bilirubin 1.6 H AST 21 ALT 26 Alkaline Phosphatase 160 H Troponin I Serum Total Protein 5.9 L Albumin 2.5 L Globulin 3.4 Albumin/Globulin Ratio 0.7 L Crossmatch Cultures: Cultures 11/04/17 07:00 Body Fluid Culture - Preliminary Other-Specify in Comments - Impressions Impressions Chest X-Ray 11/04/17 08:46 IMPRESSION: No radiographic evidence of consolidative pneumonia. D/ / 11/04/2017 09:25:52 Rohit Mccullough MD / [email or web address] Interpreting Provider: Rohit Mccullough MD Exam - Constitutional Vitals: Temp Pulse Resp BP Pulse Ox 97.6 F 82 16 109/62 97 11/05/17 15:58 11/05/17 15:58 11/05/17 15:58 11/05/17 15:58 11/05/17 15:58 General appearance: no acute distress, no febrile - Head Head exam: Present: atraumatic, normocephalic - Respiratory Respiratory exam: Present: CTAB. Absent: respiratory distress, wheezes - Cardiovascular Cardiovascular exam: Present: RRR, +S1, +S2 - GI/Abdominal GI/Abdominal exam: Present: soft. Absent: tenderness Additional comments: KATHE drain right upper quadrant intact - Extremities Exam Extremities exam: Present: full ROM. Absent: pedal edema - VTE Reasons for not Prescribing Prophylaxis: Medical contraindication (Anemia, Thrombocytopenia) Consult Discharge Plan - Plan Referrals: Juliana Leal MD [Primary Care Provider] -
[2017-11-06] MEDS: Piperacillin/Tazobactam 3.375 GM in 0.9 % Sodium Chloride Mini Bag 100 ML IVPB SCH ×3 (03:28→18:59)
[2017-11-06] MEDS: 0.9 % Sodium Chloride 1,000 ML IVC SCH ×2 (04:10→08:38)
[2017-11-06 05:20] LABS: Albumin 2.3 g/dL (3.5-5.7); Albumin/Globulin Ratio 0.7 (1.1-2.2); Bilirubin,Total 0.5 mg/dL (0.3-1.0); Calcium 8.4 mg/dL (8.6-10.3); Globulin 3.2 g/dL (2.4-3.5); Total Protein 5.5 g/dL (6.4-8.9)
[2017-11-06 07:12] LABS: Lymphocytes % 2.9 %; Red Cell Distribution Width 16.2 % (11.5-14.5)
[2017-11-06 07:14] LABS: Basophils % 0.1 %; Eosinophils % 0.7 %; Mean Platelet Volume 9.8 fL (9.4-12.4)
[2017-11-06 07:52] LABS: Eosinophils # 0.2 K/mcL (0.0-0.6); Hematocrit 20.1 % (35.3-44.9); Hemoglobin 6.4 g/dL (11.5-15.4); Immature Granulocytes % 1.1 % (0-4); Immature Platelets 2.2 % (1.1-6.1); Lymphocytes # 0.8 K/mcL (0.6-4.6); Mean Corpuscular HGB Conc 31.8 g/dL (31.6-35.5); Mean Corpuscular Hemoglobin 29.4 pg (28.0-33.3); Mean Corpuscular Volume 92.2 fL (83.0-100.0); Monocytes # 0.3 K/mcL (0.0-1.3); Monocytes % 1.2 %; Neutrophils # 25.3 K/mcL (1.6-8.9); Platelet Count 538 K/mcL (140-400); Red Blood Count 2.18 M/mcL (3.82-4.97)
[2017-11-06 08:21] LABS: Platelet Estimate Increased (Normal)
[2017-11-06] MEDS: Multivit/Ca/Min/Fe/FA 1 TAB TABLET PO SCH (08:37)
[2017-11-06] MEDS: Aspirin Enteric Coated 81 MG Tablet PO SCH (08:37)
[2017-11-06] MEDS: [UNRECOGNIZED DRUG - OTHER] PO SCH ×2 (08:38→22:21)
[2017-11-06] MEDS: Ascorbic Acid 500 MG TABLET PO SCH (08:39)
[2017-11-06] MEDS ORDERED: Furosemide 20 MG/2 ML VIAL IVP ONE ×2 (08:56→15:15)
--- NOTE | 2017-11-06 09:13 | Internal Med Progress Note ---
<Sam Castaneda - Last Filed: 11/06/17 09:13> Date of Encounter: 11/06/17 - Assessment and plan (1) Anemia Current Visit: Yes Status: Acute Qualifiers: Anemia type: other cause Other causes of anemia: other cause, not classified Qualified Code(s): D64.89 - Other specified anemias (2) Pericardial effusion without cardiac tamponade Current Visit: Yes Status: Acute (3) Thrombocytosis Current Visit: Yes Status: Acute (4) Generalized weakness Current Visit: Yes Status: Acute (5) Pyogenic liver abscess Current Visit: Yes Status: Acute (6) Severe sepsis Current Visit: Yes Status: Acute (7) Poor appetite Current Visit: Yes Status: Acute (8) DVT prophylaxis Current Visit: Yes Status: Acute - Time Spent With Patient Total time spent is greater than 50% in coordination of care (as documented) at patient's floor/unit and/or counseling patient: - Subjective Interval history: The patient is seen and examined at bedside. She remains nauseated without any appetite. She otherwise is feeling somewhat better, and says that her pain is well controlled. - Constitutional Vitals: Temp Pulse Resp BP Pulse Ox 99.1 F 95 15 139/76 93 11/06/17 07:25 11/06/17 07:25 11/06/17 07:25 11/06/17 07:25 11/06/17 07:25 General appearance: Present: cooperative, A&O X 3, pleasant, answers questions appropriately Internal Medicine: Result - Labs CBC & Chem 7: 11/06/17 06:29 11/06/17 04:48 Labs: Short CBC 11/06/17 Range/Units 06:29 WBC 26.9 H D (4.3-11.1) K/mcL Hgb 6.4 L (11.5-15.4) g/dL Hct 20.1 L (35.3-44.9) % Plt Count 538 H (140-400) K/mcL Neutrophils # 25.3 H (1.6-8.9) K/mcL BMP 11/06/17 04:48 Sodium 135 L Potassium 4.0 Chloride 105 Carbon Dioxide 21 L BUN 42 H Creatinine 1.66 H Glucose 106 H Calcium 8.4 L Liver Function 11/06/17 Range/Units 04:48 Total Bilirubin 0.5 (0.3-1.0) mg/dL AST 25 (13-39) Units/L ALT 27 (7-52) Units/L Alkaline Phosphatase 137 H (34-104) Units/L Albumin 2.3 L (3.5-5.7) g/dL - ABG Interpretation ABG results: PT/INR, D-dimer PT 15.8 Seconds (9.4-12.1) H 11/04/17 07:49 - Impressions Impressions Chest X-Ray 11/04/17 08:46 IMPRESSION: No radiographic evidence of consolidative pneumonia. D/ / 11/04/2017 09:25:52 Rohit Mccullough MD / bcarter Interpreting Provider: Rohit Mccullough MD - VTE Reasons for not Prescribing Prophylaxis: Medical contraindication (Anemia, Thrombocytopenia) Documentation of Mechanical Device: Intermittent pneumatic compression device Consult Discharge Plan - Plan Referrals: Juliana Leal MD [Primary Care Provider] - <Trent Avalos - Last Filed: 11/06/17 16:45> Date of Encounter: 11/06/17 Time of Encounter: 16:48 - Assessment and plan (1) Severe sepsis Current Visit: Yes Status: Resolved Assessment and plan: Severe sepsis, improved unclear etiology for liver lesions She did experience MAXIMUM TEMPERATURE 102.1 afebrile since 11/04 Remained with normal heart rate and normal blood pressure overnight Draining serosanguineous fluid per wound, no obvious purulence Continue Zosyn (2) Pyogenic liver abscess Current Visit: Yes Status: Suspected Assessment and plan: awaiting pathology before transfer to [facility] for further investigation initial gram stain, cultures negative plan as above (3) Anemia Current Visit: Yes Status: Acute Assessment and plan: required two addtional [facility] today for tatal of 3 etiolgy unclear B12 and folate WNL iron panel pending denies melana or hematochezia repeat CT abdomen showed hemorrhagic ascities Qualifiers: Anemia type: other cause Other causes of anemia: other cause, not classified Qualified Code(s): D64.89 - Other specified anemias (4) Pericardial effusion without cardiac tamponade Current Visit: Yes Status: Acute Assessment and plan: No evidence of tamponade at this time. Following. (5) Thrombocytosis Current Visit: Yes Status: Acute Assessment and plan: reactive improved will continue to follow. (6) Generalized weakness Current Visit: Yes Status: Acute Assessment and plan: Most likely related to infection, but also lack of food Ordered nutrition consult ensure tid (7) Poor appetite Current Visit: Yes Status: Acute (8) DVT prophylaxis Current Visit: Yes Status: Acute - Time Spent With Patient Total time spent is greater than 50% in coordination of care (as documented) at patient's floor/unit and/or counseling patient: - Subjective Interval history: No acute overnight events. afebrile overnight. She reports mild abdominal pain and nausea. Patient was planned to be [facility] for further evaluation of liver lesions. [facility] reported they would like pathology of liver lesion biopsy to result before transferring. Pathology lab called and reported that biopsy is processing. - Constitutional Vitals: Temp Pulse Resp BP Pulse Ox 98.1 F 93 18 138/73 98 11/06/17 15:50 11/06/17 15:50 11/06/17 15:50 11/06/17 15:50 11/06/17 15:50 - Other Additional findings: General: plesant without distress HEENT: Head atraumatic, normocephalic, EOMI, PERRL, neck nontender to palpation , absent lymphadenopathy, Moist Mucous Membranes, Heart: Regular rate and rhythm with no murmur Lungs: Clear to auscultation bilaterally Abdomen: Soft nontender, nondistended positive bowel sounds Skin: warm and dry, absent rash Extremities: Absent pedal edema, Neuro: alert oriented x 3 Vascular: Pedal and radial pulses 2 out of 4 Internal Medicine: Result - Labs CBC & Chem 7: 11/06/17 06:29 11/06/17 04:48 Labs: Short CBC 11/06/17 Range/Units 06:29 WBC 26.9 H D (4.3-11.1) K/mcL Hgb 6.4 L (11.5-15.4) g/dL Hct 20.1 L (35.3-44.9) % Plt Count 538 H (140-400) K/mcL Neutrophils # 25.3 H (1.6-8.9) K/mcL BMP 11/06/17 04:48 Sodium 135 L Potassium 4.0 Chloride 105 Carbon Dioxide 21 L BUN 42 H Creatinine 1.66 H Glucose 106 H Calcium 8.4 L Liver Function 11/06/17 Range/Units 04:48 Total Bilirubin 0.5 (0.3-1.0) mg/dL AST 25 (13-39) Units/L ALT 27 (7-52) Units/L Alkaline Phosphatase 137 H (34-104) Units/L Albumin 2.3 L (3.5-5.7) g/dL - ABG Interpretation ABG results: PT/INR, D-dimer PT 15.8 Seconds (9.4-12.1) H 11/04/17 07:49 - Impressions Impressions Abdomen/Pelvis CT 11/06/17 10:21 IMPRESSION: Status post recent pigtail catheter placement into the left hepatic lobe. No discrete perihepatic hematoma or intraparenchymal hematoma. Small-moderate amount of ascites in the pelvis with hemorrhagic ascites layering dependently in the cul-de-sac. Small right pleural effusion is low-attenuation. Trace left pleural effusion. D/ / 11/06/2017 13:06:16 Jarrell Morrow MD / bcarter Interpreting Provider: Jarrell Morrow MD <Hugh Herrera - Last Filed: 11/06/17 18:26> Date of Encounter: 11/06/17 - Assessment and plan (1) Pyogenic liver abscess Current Visit: Yes Status: Suspected (2) Anemia Current Visit: Yes Status: Acute Qualifiers: Anemia type: other cause Other causes of anemia: other cause, not classified Qualified Code(s): D64.89 - Other specified anemias (3) Pericardial effusion without cardiac tamponade Current Visit: Yes Status: Acute (4) Thrombocytosis Current Visit: Yes Status: Acute (5) Generalized weakness Current Visit: Yes Status: Acute (6) Severe sepsis Current Visit: Yes Status: Resolved (7) Poor appetite Current Visit: Yes Status: Acute (8) DVT prophylaxis Current Visit: Yes Status: Acute - Time Spent With Patient Total time spent is greater than 50% in coordination of care (as documented) at patient's floor/unit and/or counseling patient: - Constitutional Vitals: Temp Pulse Resp BP Pulse Ox 98.1 F 93 18 138/73 98 11/06/17 15:50 11/06/17 15:50 11/06/17 15:50 11/06/17 15:50 11/06/17 15:50 Internal Medicine: Result - Labs CBC & Chem 7: 11/06/17 06:29 11/06/17 04:48 Labs: Short CBC 11/06/17 Range/Units 06:29 WBC 26.9 H D (4.3-11.1) K/mcL Hgb 6.4 L (11.5-15.4) g/dL Hct 20.1 L (35.3-44.9) % Plt Count 538 H (140-400) K/mcL Neutrophils # 25.3 H (1.6-8.9) K/mcL BMP 11/06/17 04:48 Sodium 135 L Potassium 4.0 Chloride 105 Carbon Dioxide 21 L BUN 42 H Creatinine 1.66 H Glucose 106 H Calcium 8.4 L Liver Function 11/06/17 Range/Units 04:48 Total Bilirubin 0.5 (0.3-1.0) mg/dL AST 25 (13-39) Units/L ALT 27 (7-52) Units/L Alkaline Phosphatase 137 H (34-104) Units/L Albumin 2.3 L (3.5-5.7) g/dL - ABG Interpretation ABG results: PT/INR, D-dimer PT 15.8 Seconds (9.4-12.1) H 11/04/17 07:49 - Impressions Impressions Abdomen/Pelvis CT 11/06/17 10:21 IMPRESSION: Status post recent pigtail catheter placement into the left hepatic lobe. No discrete perihepatic hematoma or intraparenchymal hematoma. Small-moderate amount of ascites in the pelvis with hemorrhagic ascites layering dependently in the cul-de-sac. Small right pleural effusion is low-attenuation. Trace left pleural effusion. D/ / 11/06/2017 13:06:16 Jarrell Morrow MD / bcarter Interpreting Provider: Jarrell Morrow MD - Attending Attestation I examined this patient and my medical decision-making was reviewed with the Resident Physician on 11/06/17. I agree with the documented findings, disposition and treatment plan as described except to the extent set forth below. Ms Brendan Collins is currently admitted for liver abscess and leukocytosis with anemia. She remains moderate to high risk due to potential for worsening clinical status. Ms Brendan Collins is still having abd pain. No fever. No diarrhea. No other symptoms. Exam alert Mild distress Mucus membranes dry Heart reg No wheeze abd with some tenderness unchanged I/P 1. Abd pain 2. Liver abscess Repeat CT Anticipate transfer to [facility]. Further diagnoses and plan as above
[2017-11-06] MEDS ORDERED: 0.9 % Sodium Chloride 250 ML ONE ×2 (10:04→15:06)
[2017-11-06] MEDS ORDERED: Isovue-370 500 ML INFUS..BTL IV ONE (10:21)
--- NOTE | 2017-11-06 12:27 | Infectious Disease Progress No ---
Date of Encounter: 11/06/17 Time of Encounter: 12:25 - Assessment and Plan (1) Pyogenic liver abscess Current Visit: Yes Status: Acute Initially seen on his CT abdomen and pelvis in September [address] scan reveals worsening of the lesion Status post drainage and biopsy by IR on 11/01/17 100 mL of purulence removed Gram stain reveals no organism: Cultures are pending Patient started empirically on Zosyn. This is a pyogenic liver abscess I would expect some bacteria to grow specially 100 mL of purulence. The fact the Gram stain and bacteria are not growing makes me concerned for amoebic liver abscess versus Echinococcus I did speak with pathology and they saw some atypical cells but final pathology is pending. I also asked them to and Gram stain, GMS and AFB. I also reviewed the CT with radiology to see if the patient had obvious hydatid cyst but they said it does not appear that way. Patient does have 4 dogs so it does put her at some risk. I check Echinococcus serology, Entamoeba histolytica serology and antigen Await pathology report on Repeat CT abdomen and pelvis today does not reveal worsening abscess or anything. There might be ascites Continue Zosyn for now Discussed with Dr. Herrera and we are considering transferring the patient to [facility] where they have hepatology service Dose adjust based on creatinine clearance: Pharmacy to help (2) Severe sepsis Current Visit: Yes Status: Acute Patient had 3 SIRS criteria and and organ damage Likely source is pyogenic liver abscess (3) Pericardial effusion without cardiac tamponade Current Visit: Yes Status: Acute (4) Thrombocytosis Current Visit: Yes Status: Acute (5) CAD (coronary artery disease) Current Visit: Yes Status: Acute Qualifiers: Coronary Disease-Associated Artery/Lesion type: unspecified vessel or lesion type Associated angina: with unspecified angina Qualified Code(s): I25.119 - Atherosclerotic heart disease of [place] coronary artery with unspecified angina pectoris - Subjective Interval history: Patient seen and examined. Doing much better clinically today. She actually is alert and oriented does not appear toxic. She appears much better than her numbers lupus morning. Infect Dis PN-Objective Data - Labs CBC & Chem 7: 11/06/17 06:29 11/06/17 04:48 Labs: Laboratory Results - last 24 hr 11/04/17 11/06/17 11/06/17 11:41 04:48 04:48 WBC RBC Hgb Hct MCV MCH MCHC RDW Plt Count MPV Immature Gran % Seg Neutrophils % Lymphocytes % Monocytes % Eosinophils % Basophils % Neutrophils # Lymphocytes # Monocytes # Eosinophils # Basophils # Platelet Estimate Immature Plt Fraction Sodium 135 L Potassium 4.0 Chloride 105 Carbon Dioxide 21 L BUN 42 H Creatinine 1.66 H Est GFR ( Amer) 37 L Est GFR (Non-Af Amer) 30 L BUN/Creatinine Ratio 25 Glucose 106 H Calculated Osmolality 291 Lactic Acid Calcium 8.4 L Total Bilirubin 0.5 AST 25 ALT 27 Alkaline Phosphatase 137 H Serum Total Protein 5.5 L Albumin 2.3 L Globulin 3.2 Albumin/Globulin Ratio 0.7 L Vitamin B12 1474 H Folate 18.0 H Specimen Rejected Blood Type O POSITIVE Antibody Screen NEGATIVE Crossmatch See Detail 11/06/17 11/06/17 11/06/17 04:48 06:29 09:00 WBC 26.9 H D RBC 2.18 L Hgb 6.4 L Hct 20.1 L MCV 92.2 MCH 29.4 MCHC 31.8 RDW 16.2 H Plt Count 538 H MPV 9.8 Immature Gran % 1.1 Seg Neutrophils % 94.0 Lymphocytes % 2.9 Monocytes % 1.2 Eosinophils % 0.7 Basophils % 0.1 Neutrophils # 25.3 H Lymphocytes # 0.8 Monocytes # 0.3 Eosinophils # 0.2 Basophils # 0.0 Platelet Estimate Increased H Immature Plt Fraction 2.2 Sodium Potassium Chloride Carbon Dioxide BUN Creatinine Est GFR ( Amer) Est GFR (Non-Af Amer) BUN/Creatinine Ratio Glucose Calculated Osmolality Lactic Acid 0.5 Calcium Total Bilirubin AST ALT Alkaline Phosphatase Serum Total Protein Albumin Globulin Albumin/Globulin Ratio Vitamin B12 Folate Specimen Rejected MCV Delta Blood Type Antibody Screen Crossmatch Cultures: Cultures 11/04/17 11:41 Blood Culture - Preliminary Peripheral Venipuncture No growth. 11/04/17 11:41 Blood Culture - Preliminary Peripheral Venipuncture No growth. 11/04/17 07:00 Body Fluid Culture - Preliminary Other-Specify in Comments - Impressions Impressions Abdomen/Pelvis CT 11/06/17 10:21 IMPRESSION: Status post recent pigtail catheter placement into the left hepatic lobe. No discrete perihepatic hematoma or intraparenchymal hematoma. Small-moderate amount of ascites in the pelvis with hemorrhagic ascites layering dependently in the cul-de-sac. Small right pleural effusion is low-attenuation. Trace left pleural effusion. D/ / Jarrell Morrow MD / Jarrell Morrow MD Interpreting Provider: Jarrell Morrow MD Exam - Constitutional Vitals: Temp Pulse Resp BP Pulse Ox 97.9 F 93 17 130/72 97 11/06/17 12:19 11/06/17 12:19 11/06/17 12:19 11/06/17 10:42 11/06/17 12:19 General appearance: no acute distress, no febrile - Respiratory Respiratory exam: Present: CTAB. Absent: rhonchi, wheezes - Cardiovascular Cardiovascular exam: Present: RRR, +S1, +S2 - GI/Abdominal GI/Abdominal exam: Present: normal bowel sounds, soft. Absent: tenderness Additional comments: KATHE drain intact in the right upper quadrant - VTE Reasons for not Prescribing Prophylaxis: Medical contraindication (Anemia, Thrombocytopenia) Documentation of Mechanical Device: Intermittent pneumatic compression device Consult Discharge Plan - Plan Referrals: Juliana Leal MD [Primary Care Provider] -
--- NOTE | 2017-11-06 13:29 | Discharge Summary ---
Orders not resulted at time of discharge: Pending orders 11/04/17 07:00 Culture,Anaerobic [RM] Stat Culture,Body Fluid [RM] Stat Fungal Culture [MYC] Stat 11/04/17 10:30 Ova & Parasite Exam Stat 11/04/17 10:32 Pathologist Review, Body Fluid [BF] Routine 11/04/17 11:41 Culture,Blood [BC] Stat Red Blood Cells [BBK] Stat Type and Screen [BBK] Stat 11/04/17 15:20 Stool guiac [Occult Blood,Stool] [BF] Routine 11/05/17 13:39 Echinococcus antibody IgG Stat Miscellaneous Lab Test Stat 11/06/17 04:48 Ferritin AM 0400 Iron Profile AM 0400 Date of Encounter: 11/06/17 Time of Encounter: 13:16 - Discharge Diagnosis (1) Pyogenic liver abscess Priority: Primary Status: Suspected (2) Anemia Priority: Secondary Status: Acute Qualifiers: Anemia type: other cause Other causes of anemia: other cause, not classified Qualified Code(s): D64.89 - Other specified anemias (3) Pericardial effusion without cardiac tamponade Priority: Secondary Status: Acute (4) Thrombocytosis Priority: Secondary Status: Acute (5) Generalized weakness Priority: Secondary Status: Acute (6) Severe sepsis Priority: Secondary Status: Resolved (7) Poor appetite Priority: Secondary Status: Acute (8) DVT prophylaxis Priority: Secondary Status: Acute Hospital course: Ms. Brendan Collins is a 72 year old female Discharge discussed with: patient, family - Time Spent with Patient Total time spent providing and/or coordinating discharge services: Greater than 30 minutes - Discharge Medications Home Medications: Acetaminophen [Pain Reliever] 1,000 mg PO BID 11/03/17 [History] Ascorbate Calcium [Vitamin C] 500 mg PO DAILY 11/03/17 [History] Aspirin [Lo-Dose Aspirin EC] 81 mg PO DAILY 11/03/17 [History] Calcium Carbonate [Calcium] 600 mg PO DAILY 11/03/17 [History] Gluc 2Kcl/Chondr/Laurence Hy/Hy AC [Glucosamine & Chondroitin Cap] 2 cap PO BID [History] Multivitamin [One Daily Essential] 1 tab PO DAILY 11/03/17 [History] Allergies/Adverse Reactions: 3 Allergy/AdvReac Type Severity Reaction Status Date / Time cephalexin Allergy Hives Verified 04/13/16 10:56 Date of admission: 11/04/17 06:25 Primary care physician: Juliana Leal Consults: 11/04/17 10:17 Consult to Infectious Diseases [CONS] Routine Consulting Provider: [facility] [place] Reason for Consult: Liver abscess Time Notified: 10:15 Call Completed: Yes 11/05/17 08:38 Consult to Nutrition [CONS] Routine Comment: Poor appetite for weeks, cannot stomach food well Consulting Provider: NUTRITION Reason for Dietary Consult: PO Supplementation Discharging clinician: Trent Avalos Anticipated date of discharge: 11/06/17 - Constitutional Vitals: Temp Pulse Resp BP Pulse Ox 97.9 F 93 17 130/72 97 11/06/17 12:19 11/06/17 12:19 11/06/17 12:19 11/06/17 10:42 11/06/17 12:19 General appearance: Present: cooperative, A&O X 3, pleasant, answers questions appropriately - Patient Status Condition: Fair - Discharge Instructions Follow Up With: Juliana Leal MD [Primary Care Provider] - - VTE Reasons for not Prescribing Prophylaxis: Medical contraindication (Anemia, Thrombocytopenia) Documentation of Mechanical Device: Intermittent pneumatic compression device
[2017-11-06 22:22] LABS: Ferritin 947 ng/ml (10-120)
[2017-11-06 22:37] LABS: Iron < 10 mcg/dL (50-170); Transferrin 104 mg/dL (203-362)
[2017-11-07] MEDS: Piperacillin/Tazobactam 3.375 GM in 0.9 % Sodium Chloride Mini Bag 100 ML IVPB SCH ×3 (02:19→18:19)
[2017-11-07 06:47] LABS: Basophils % 0.1 %; Eosinophils # 0.3 K/mcL (0.0-0.6); Eosinophils % 1.1 %; Hematocrit 25.3 % (35.3-44.9); Immature Granulocytes % 1.8 % (0-4); Lymphocytes % 3.9 %; Mean Corpuscular HGB Conc 33.6 g/dL (31.6-35.5); Mean Corpuscular Volume 89.4 fL (83.0-100.0); Mean Platelet Volume 9.7 fL (9.4-12.4); Monocytes # 0.4 K/mcL (0.0-1.3); Monocytes % 1.7 %; Neutrophils # 22.1 K/mcL (1.6-8.9); Platelet Count 547 K/mcL (140-400); Red Blood Count 2.83 M/mcL (3.82-4.97); Red Cell Distribution Width 16.7 % (11.5-14.5); Segmented Neutrophils % 91.4 %
[2017-11-07 06:50] LABS: Hemoglobin 8.5 g/dL (11.5-15.4); Lymphocytes # 0.9 K/mcL (0.6-4.6); Platelet Estimate Normal (Normal)
[2017-11-07 07:09] LABS: Albumin 2.4 g/dL (3.5-5.7); Albumin/Globulin Ratio 0.8 (1.1-2.2); Bilirubin,Total 0.6 mg/dL (0.3-1.0); Calcium 8.6 mg/dL (8.6-10.3); Globulin 3.1 g/dL (2.4-3.5); Potassium 3.8 mEq/L (3.5-5.1); Total Protein 5.5 g/dL (6.4-8.9)
[2017-11-07] MEDS: Multivit/Ca/Min/Fe/FA 1 TAB TABLET PO SCH (09:23)
[2017-11-07] MEDS: Ascorbic Acid 500 MG TABLET PO SCH (09:23)
[2017-11-07] MEDS: Aspirin Enteric Coated 81 MG Tablet PO SCH (09:23)
[2017-11-07] MEDS: [UNRECOGNIZED DRUG - OTHER] PO SCH (09:24)
--- NOTE | 2017-11-07 14:45 | Internal Med Progress Note ---
<Trent Avalos - Last Filed: 11/07/17 14:43> Date of Encounter: 11/07/17 Time of Encounter: 14:43 - Assessment and plan (1) Severe sepsis Current Visit: Yes Status: Resolved Assessment and plan: Severe sepsis, improved unclear etiology for liver lesions She did experience MAXIMUM TEMPERATURE 102.1 afebrile since 11/04 Remained with normal heart rate and normal blood pressure overnight Draining serosanguineous fluid per wound, no obvious purulence Continue Zosyn and started on flagyl (2) Anemia Current Visit: Yes Status: Acute Assessment and plan: required two addtional PBRC today for total of 3 No evidence of bleeding on exam other than bloody serosanguineous drainage in KATHE tube which at this point she is at 230 mL total. B12 and folate WNL Severely iron deficient patient will be given IV iron. Qualifiers: Anemia type: other cause Other causes of anemia: other cause, not classified Qualified Code(s): D64.89 - Other specified anemias (3) Pericardial effusion without cardiac tamponade Current Visit: Yes Status: Resolved Assessment and plan: No evidence of tamponade at this time. Following. (4) Thrombocytosis Current Visit: Yes Status: Acute Assessment and plan: reactive improved will continue to follow. (5) Generalized weakness Current Visit: Yes Status: Acute Assessment and plan: Most likely related to infection, but also lack of food Ordered nutrition consult ensure tid (6) Pyogenic liver abscess Current Visit: Yes Status: Suspected Assessment and plan: awaiting pathology before transfer to [facility] for further investigation initial gram stain, cultures negative continue zosyn. added flagyl. plan as above (7) Poor appetite Current Visit: Yes Status: Acute Assessment and plan: Poor appetite, likely secondary to infection Consult to nutrition for supplementation Ensure TID added megace (8) DVT prophylaxis Current Visit: Yes Status: Acute Assessment and plan: heparin sq - Time Spent With Patient Total time spent is greater than 50% in coordination of care (as documented) at patient's floor/unit and/or counseling patient: - Subjective Interval history: No acute overnight events. afebrile overnight. Denies abdominal pain. Reports continued decrease in appetite. - Constitutional Vitals: Temp Pulse Resp BP Pulse Ox 98.1 F 90 18 134/74 95 11/07/17 11:23 11/07/17 11:23 11/07/17 11:23 11/07/17 11:23 11/07/17 11:23 General appearance: Present: cooperative, A&O X 3, pleasant, answers questions appropriately - Other Additional findings: General: without distress Heart: Regular rate and rhythm with no murmur Lungs: Clear to auscultation bilaterally Abdomen: Soft nontender, nondistended positive bowel sounds. Right upper quadrant KATHE drain with serosanguineous bloody fluid. Skin: warm and dry, absent rash Extremities: 1+ pedal edema b/l Neuro: alert oriented x2 Vascular: Pedal and radial pulses 2 out of 4 Internal Medicine: Result - Labs CBC & Chem 7: 11/07/17 06:03 11/07/17 06:03 Labs: Short CBC 11/07/17 Range/Units 06:03 WBC 24.2 H (4.3-11.1) K/mcL Hgb 8.5 L D (11.5-15.4) g/dL Hct 25.3 L (35.3-44.9) % Plt Count 547 H (140-400) K/mcL Neutrophils # 22.1 H (1.6-8.9) K/mcL BMP 11/07/17 06:03 Sodium 136 Potassium 3.8 Chloride 104 Carbon Dioxide 24 BUN 41 H Creatinine 1.49 H Glucose 108 H Calcium 8.6 Liver Function 11/07/17 Range/Units 06:03 Total Bilirubin 0.6 (0.3-1.0) mg/dL AST 19 (13-39) Units/L ALT 25 (7-52) Units/L Alkaline Phosphatase 148 H (34-104) Units/L Albumin 2.4 L (3.5-5.7) g/dL - ABG Interpretation ABG results: PT/INR, D-dimer PT 15.8 Seconds (9.4-12.1) H 11/04/17 07:49 - VTE Reasons for not Prescribing Prophylaxis: Medical contraindication (Anemia, Thrombocytopenia) Documentation of Mechanical Device: Intermittent pneumatic compression device Consult Discharge Plan - Plan Referrals: Juliana Leal MD [Primary Care Provider] - <Hugh Herrera - Last Filed: 11/07/17 16:57> Date of Encounter: 11/07/17 - Assessment and plan (1) Pyogenic liver abscess Current Visit: Yes Status: Suspected (2) Anemia Current Visit: Yes Status: Acute Qualifiers: Anemia type: iron deficiency Iron deficiency anemia type: other iron deficiency Qualified Code(s): D50.8 - Other iron deficiency anemias (3) Pericardial effusion without cardiac tamponade Current Visit: Yes Status: Resolved (4) Thrombocytosis Current Visit: Yes Status: Acute (5) Generalized weakness Current Visit: Yes Status: Acute (6) Severe sepsis Current Visit: Yes Status: Resolved (7) Poor appetite Current Visit: Yes Status: Acute (8) DVT prophylaxis Current Visit: Yes Status: Acute (9) Leukocytosis Current Visit: Yes Status: Acute Qualifiers: Leukocytosis type: leukemoid reaction Qualified Code(s): D72.823 - Leukemoid reaction - Time Spent With Patient Total time spent is greater than 50% in coordination of care (as documented) at patient's floor/unit and/or counseling patient: - Constitutional Vitals: Temp Pulse Resp BP Pulse Ox 98.1 F 90 18 134/74 95 11/07/17 11:23 11/07/17 11:23 11/07/17 11:23 11/07/17 11:23 11/07/17 11:23 Internal Medicine: Result - Labs CBC & Chem 7: 11/07/17 06:03 11/07/17 06:03 Labs: Short CBC 11/07/17 Range/Units 06:03 WBC 24.2 H (4.3-11.1) K/mcL Hgb 8.5 L D (11.5-15.4) g/dL Hct 25.3 L (35.3-44.9) % Plt Count 547 H (140-400) K/mcL Neutrophils # 22.1 H (1.6-8.9) K/mcL BMP 11/07/17 06:03 Sodium 136 Potassium 3.8 Chloride 104 Carbon Dioxide 24 BUN 41 H Creatinine 1.49 H Glucose 108 H Calcium 8.6 Liver Function 11/07/17 Range/Units 06:03 Total Bilirubin 0.6 (0.3-1.0) mg/dL AST 19 (13-39) Units/L ALT 25 (7-52) Units/L Alkaline Phosphatase 148 H (34-104) Units/L Albumin 2.4 L (3.5-5.7) g/dL - ABG Interpretation ABG results: PT/INR, D-dimer PT 15.8 Seconds (9.4-12.1) H 11/04/17 07:49 - Attending Attestation I examined this patient and my medical decision-making was reviewed with the Resident Physician on 11/07/17. I agree with the documented findings, disposition and treatment plan as described except to the extent set forth below. Ms Brendan Collins is currently admitted for pyogenic liver abscess and sepsis. She remains moderate to high risk due to potential for worsening clinical status. Ms Brendan Collins is feeling about the same. No fever or chills. WBC still elevated though Hgb better. No GI issues. Exam alert Comfortable Mucus membranes dry Heart not tachy No wheeze Abd soft I/P 1. Liver abscess 2. Leukocytosis 3. Iron def anemia Further diagnoses and plan as above.
[2017-11-07] MEDS: MetroNIDAZOLE 500 MG/100 ML 500 MG/100 ML BAG IVPB SCH ×2 (15:57→23:31)
[2017-11-08] MEDS: Piperacillin/Tazobactam 3.375 GM in 0.9 % Sodium Chloride Mini Bag 100 ML IVPB SCH ×3 (01:22→17:00)
[2017-11-08 06:52] LABS: Basophils # 0.1 K/mcL (0.0-0.2); Basophils % 0.3 %; Eosinophils # 0.5 K/mcL (0.0-0.6); Eosinophils % 2.2 %; Hematocrit 29.5 % (35.3-44.9); Hemoglobin 9.7 g/dL (11.5-15.4); Immature Granulocytes % 3.1 % (0-4); Lymphocytes # 1.2 K/mcL (0.6-4.6); Lymphocytes % 5.5 %; Mean Corpuscular HGB Conc 32.9 g/dL (31.6-35.5); Mean Corpuscular Hemoglobin 29.3 pg (28.0-33.3); Mean Corpuscular Volume 89.1 fL (83.0-100.0); Mean Platelet Volume 9.5 fL (9.4-12.4); Monocytes # 0.7 K/mcL (0.0-1.3); Monocytes % 3.1 %; Neutrophils # 18.3 K/mcL (1.6-8.9); Platelet Count 680 K/mcL (140-400); Red Blood Count 3.31 M/mcL (3.82-4.97); Red Cell Distribution Width 16.8 % (11.5-14.5); Segmented Neutrophils % 85.8 %
[2017-11-08 07:14] LABS: Calcium 8.8 mg/dL (8.6-10.3); Potassium 3.8 mEq/L (3.5-5.1)
[2017-11-08] MEDS ORDERED: Isovue-370 500 ML INFUS..BTL IV ONE (08:00)
[2017-11-08] MEDS ORDERED: 0.9 % Sodium Chloride 500 ML IVC ONE (08:00)
[2017-11-08] MEDS ORDERED: traMADol 50 MG TABLET PO PRN (08:01)
[2017-11-08] MEDS: MetroNIDAZOLE 500 MG/100 ML 500 MG/100 ML BAG IVPB SCH ×2 (08:42→16:58)
[2017-11-08] MEDS: Multivit/Ca/Min/Fe/FA 1 TAB TABLET PO SCH (08:43)
[2017-11-08] MEDS: Ascorbic Acid 500 MG TABLET PO SCH (08:43)
[2017-11-08] MEDS: Aspirin Enteric Coated 81 MG Tablet PO SCH (08:43)
[2017-11-08] MEDS ORDERED: Iron Sucrose Complex 250 MG in 0.9 % Sodium Chloride 250 ML IVPB SCH (09:00)
[2017-11-08] MEDS ORDERED: 0.9 % Sodium Chloride 1,000 ML IVC ONE (10:08)
[2017-11-08] MEDS ORDERED: *HR* OxyCODONE/APAP 5/325 TABLET PO PRN (16:28)
--- NOTE | 2017-11-08 16:42 | General Surgery Consult Note ---
<Nazario Kelly - Last Filed: 11/08/17 16:27> Date of Encounter: 11/08/17 Time of Encounter: 15:00 Assessment and Plan (1) Abdominal pain Current Visit: Yes Status: Acute CT of the abdomen shows fecalith of the middle of appendix with a distended tip concerning for early appendicits. And given her new RLQ pain, this seems like a likely source for her pain. We will proceed with an echocardiogram given finds of new pericardial effusion. Will likely proceed with lap appy in the AM given reuslts of the echocardiogram are normal. Head CT 11/03/17 18:19 IMPRESSION: No acute intracranial abnormality. D/ / Andrew Dan MD / Andrew Dan MD Interpreting Provider: Andrew Dan MD Liver Abscess Drainage CT 11/04/17 00:00 IMPRESSION: The hepatic mass is primarily a large abscess. Therefore, following biopsy, a 12 Mongolian drain was placed. 100 cc of purulent fluid was aspirated. Cultures are pending. The catheter was placed to KATHE bulb suction and orders have been written for q shift flushes. No obvious malignancy was seen on initial review of the biopsy touch preps by the pathologist. Final pathology is pending. Continued CT follow-up is recommended if final pathology is negative, as underlying malignancy is not excluded based on today's procedure given the amount of inflammation. Results of today's procedure, and follow-up plan, were discussed with the ordering physician, Dr. Herrera, at the conclusion of today's procedure. D/ / Demario Lees MD / Demario Lees MD Interpreting Provider: Demario Lees MD Liver Biopsy CT 11/04/17 00:00 IMPRESSION: The hepatic mass is primarily a large abscess. Therefore, following biopsy, a 12 Mongolian drain was placed. 100 cc of purulent fluid was aspirated. Cultures are pending. The catheter was placed to KATHE bulb suction and orders have been written for q shift flushes. No obvious malignancy was seen on initial review of the biopsy touch preps by the pathologist. Final pathology is pending. Continued CT follow-up is recommended if final pathology is negative, as underlying malignancy is not excluded based on today's procedure given the amount of inflammation. Results of today's procedure, and follow-up plan, were discussed with the ordering physician, Dr. Herrera, at the conclusion of today's procedure. D/ / Demario Lees MD / Demario Lees MD Interpreting Provider: Demario Lees MD Chest X-Ray 11/04/17 08:46 IMPRESSION: No radiographic evidence of consolidative pneumonia. D/ / 11/04/2017 09:25:52 Rohit Mccullough MD / fab Interpreting Provider: Rohit Mccullough MD Abdomen/Pelvis CT 11/08/17 10:30 IMPRESSION: Interval increased pericardial effusion. Interval increased bilateral pleural effusions with persistent bibasilar airspace disease, atelectasis and/or pneumonia. Drainage catheter within hepatic abscess, tip surrounded by hyperdense material, edema and/or phlegmonous material/pockets of fluid. There been interval increase in size of smaller medial lobe collections. Interval increased perihepatic fluid which shows some rim enhancement. Dependent fluid in the lower pelvis is decreased in amount but does show some rim enhancement. The distal appendix contain fluid with upper limits normal caliber ; fecalith within the midportion of the appendix. The appendix was normal 10/28/2017. Acute appendicitis cannot be excluded. Abnormal thickening of the endometrium. Correlation with pelvic ultrasound is recommended as endometrial carcinoma is a concern. Extensive colonic diverticulosis, particularly of the sigmoid colon which shows wall thickening, probably due to chronic inflammation. Follow-up to exclude neoplasm is recommended. D/ / Lizzeth Iglesias Cha, MD / Lizzeth Iglesias Cha, MD Interpreting Provider: Lizzeth Iglesias Cha, MD Qualifiers: Qualified Code(s): R10.31 - Right lower quadrant pain (2) Liver lesion Current Visit: Yes Status: Acute (3) Pericardial effusion without cardiac tamponade Current Visit: Yes Status: Resolved History of Present Illness Requesting physician: Trent Avalos History of present illness: Patient is a 72 Y F who presented to the ED on 11/04/17 for several weeks of generalized weakness. Patient was recently admitted her a little while ago and needed to be transferred to [facility] for sepsis secondary to UTI on September 19 2017. She was subsequently discharged [facility] and during a follow-up with her PCP, she obtained a CT of her abdomen which revealed multiple liver lesions. She is currently admitted here for worsening fatigue and syncopal-like episodes. A CT performed of the liver shows a hepatic mass. There is concern for hepatic cellular carcinoma vs. hepatic abscess. IR placed a drain. Pathology results pending. Infectious disease was consulted for possible entoameba histolytica. Surgery was consulted for new onset RLQ pain. She states a weight loss of 1-20 lbs. since mid-August. Her last colonoscopy was 10 years ago. Family history of colon cancer in brother and son. Past Med Surg Social Fam HX - Past Medical History Medical history: arthritis, other Psychiatric history: no psych history - Past Surgical History Surgical History: no surgical history - Social History Smoking Status: Never smoker Smokeless Tobacco Status: No Alcohol use: occasionally Drug use: none Medications and Allergies Acetaminophen [Pain Reliever] 1,000 mg PO BID 11/03/17 [History] Ascorbate Calcium [Vitamin C] 500 mg PO DAILY 11/03/17 [History] Aspirin [Lo-Dose Aspirin EC] 81 mg PO DAILY 11/03/17 [History] Calcium Carbonate [Calcium] 600 mg PO DAILY 11/03/17 [History] Gluc 2Kcl/Chondr/Laurence Hy/Hy AC [Glucosamine & Chondroitin Cap] 2 cap PO BID [History] Multivitamin [One Daily Essential] 1 tab PO DAILY 11/03/17 [History] 3 Allergy/AdvReac Type Severity Reaction Status Date / Time cephalexin Allergy Hives Verified 04/13/16 10:56 Review of Systems All systems PM: The remainder of the systems were reviewed and are negative General Surgery Exam Initial Vital Signs Temp Pulse Resp BP Pulse Ox 97.5 F L 106 20 150/74 99 05/15/18 16:55 11/03/17 16:55 11/03/17 16:55 11/03/17 16:55 11/03/17 16:55 - Respiratory normal expansion, normal respiratory effort, clear to percussion, clear to auscultation - Cardiovascular Cardiovascular exam: Present: RRR, 15, 16 - Abdomen Abdomen general surgery: Present: bowel sounds present, soft Abdominal Tenderness: Present: RUQ, RLQ - Psychiatric Psychiatric general surgery: Present: appropriate, oriented to person, oriented to place, oriented to time, speech is normal, memory intact Exam Initial Vital Signs Temp Pulse Resp BP Pulse Ox 97.5 F L 106 20 150/74 99 11/03/17 16:55 11/03/17 16:55 11/03/17 16:55 11/03/17 16:55 11/03/17 16:55 Results - Labs 11/08/17 05:45 11/08/17 05:45 Abnormal lab results WBC 21.3 K/mcL (4.3-11.1) H 11/08/17 05:45 RBC 3.31 M/mcL (3.82-4.97) L 11/08/17 05:45 Hgb 9.7 g/dL (11.5-15.4) L 11/08/17 05:45 Hct 29.5 % (35.3-44.9) L 11/08/17 05:45 RDW 16.8 % (11.5-14.5) H 11/08/17 05:45 Plt Count 680 K/mcL (140-400) H 11/08/17 05:45 Band Neutrophils % 6.0 % (0-4) H 11/03/17 19:24 Neutrophils # 18.3 K/mcL (1.6-8.9) H 11/08/17 05:45 Nucleated RBCs/100 WBC 0.1 /100 WBC (0) H 11/03/17 19:24 Polychromasia 1+ (Not Present) A 11/05/17 01:05 Hypochromasia Present (Not Present) A 11/05/17 01:05 Macrocytosis Present (Not Present) A 11/03/17 19:24 PT 15.8 Seconds (9.4-12.1) H 11/04/17 07:49 BUN 38 mg/dL (8-23) H 11/08/17 05:45 Creatinine 1.26 mg/dL (0.60-1.20) H 11/08/17 05:45 Est GFR ( Amer) 51 (> 60) L 11/08/17 05:45 Est GFR (Non-Af Amer) 42 (> 60) L 11/08/17 05:45 BUN/Creatinine Ratio 30 (6-26) H 11/08/17 05:45 POC Glucose 122 mg/dL (70-99) H 11/04/17 07:53 Iron < 10 mcg/dL (50-170) L 11/06/17 04:48 Transferrin 104 mg/dL (203-362) L 11/06/17 04:48 Ferritin 947 ng/ml (10-120) H 11/06/17 04:48 Alkaline Phosphatase 148 Units/L (34-104) H 11/07/17 06:03 Troponin I 0.04 ng/mL (< 0.04) H* 11/04/17 18:46 Serum Total Protein 5.5 g/dL (6.4-8.9) L 11/07/17 06:03 Albumin 2.4 g/dL (3.5-5.7) L 11/07/17 06:03 Albumin/Globulin Ratio 0.8 (1.1-2.2) L 11/07/17 06:03 Vitamin B12 1474 pg/mL (250-1100) H 11/06/17 04:48 Folate 18.0 ng/mL (3.0-16.0) H 11/06/17 04:48 Urine Clarity Hazy (Clear) A 11/03/17 19:00 Urine Protein 100 mg/dL (Neg-Trace) H 11/03/17 19:00 Urine Ketones Trace mg/dL (Negative) H 11/03/17 19:00 Urine Bilirubin Small (Negative) H 11/03/17 19:00 Ur Leukocyte Esterase Small (Negative) H 11/03/17 19:00 Urine Microscopic WBC 5-15 per hpf (0-3) H 11/03/17 19:00 Ur Squamous Epith Cells Many per lpf (None-Few) H 11/03/17 19:00 Urine Bacteria Moderate per hpf (None-Few) H 11/03/17 19:00 Diabetes panel 11/08/17 Range/Units 05:45 Sodium 137 (136-145) mEq/L Potassium 3.8 (3.5-5.1) mEq/L Chloride 103 (98-107) mEq/L Carbon Dioxide 26 (23-29) mEq/L BUN 38 H (8-23) mg/dL Creatinine 1.26 H (0.60-1.20) mg/dL Glucose 96 (70-105) mg/dL Calcium 8.8 (8.6-10.3) mg/dL Calcium panel 11/08/17 Range/Units 05:45 Calcium 8.8 (8.6-10.3) mg/dL Pituitary panel 11/08/17 Range/Units 05:45 Sodium 137 (136-145) mEq/L Potassium 3.8 (3.5-5.1) mEq/L Chloride 103 (98-107) mEq/L Carbon Dioxide 26 (23-29) mEq/L BUN 38 H (8-23) mg/dL Creatinine 1.26 H (0.60-1.20) mg/dL Glucose 96 (70-105) mg/dL Calcium 8.8 (8.6-10.3) mg/dL Adrenal panel 11/08/17 Range/Units 05:45 Sodium 137 (136-145) mEq/L Potassium 3.8 (3.5-5.1) mEq/L Chloride 103 (98-107) mEq/L Carbon Dioxide 26 (23-29) mEq/L BUN 38 H (8-23) mg/dL Creatinine 1.26 H (0.60-1.20) mg/dL Glucose 96 (70-105) mg/dL Calcium 8.8 (8.6-10.3) mg/dL All other labs normal. Consult Discharge Plan - Plan Referrals: Juliana Leal MD [Primary Care Provider] - <Vickie Michael - Last Filed: 11/08/17 18:15> Date of Encounter: 11/08/17 Assessment and Plan (1) Fecalith of appendix Current Visit: Yes Status: Acute discussed new CT finding of fecalith of the appendix and distal tip dilation which corresponds to her new RLQ patient with worsening mesenteric edema, fluid around liver and enlargement of liver fluid area despite being drained new pericardial effusion - echo ordered stat discussed with patient and her that the distal tip of the appendix is likely dilated due to the fecalith and this can progress to appendicitis she will continue her antibiotics and if she has continued abdominal pain in the RLQ tomorrow will plan laparoscopic appendectomy, possible open have discussed patient with anesthesia 18:00 informed patients brother is an internest and has told family to be transferred to [facility] or [place] and now patient and family are requesting transfer, hospitalist is trying to get patient transferred this evening. Will not plan surgical intervention at this time. (2) Leukocytosis Current Visit: Yes Status: Acute patient on antibiotics trend wbc Qualifiers: Leukocytosis type: unspecified Qualified Code(s): D72.829 - Elevated white blood cell count, unspecified (3) Liver lesion Current Visit: Yes Status: Acute awaiting pathology results from liver biopsy drain does not appear purulent but serous/bilious History of Present Illness Consult date: 11/08/17 Reason for consult: abdominal pain History of present illness: patient is a pleasant 72 yo female with new diagnosis several weeks ago with hepatocellular mass vs abscess vs infected/abscessed liver mass. IR has placed a drain in the liver fluid collection and performed tissue biopsy. Tissue biopsy results are pending. Cultures from liver abscess are negative. ID has been consulted and is concerned re possible amebic abscess versus Echinococcus infection - results of testing pending. She denies that she has been having abdominal pain over that last few weeks. She has experienced about a 10-20 lbs weight loss in the last 2-3 months. She had new onset RLQ abdominal pain this morning that she describes as a dull to sharp pain without radiation. If she doesnt move the pain is better. [facility] colon polyps (not cancer) in brother and son. Past Med Surg Social Fam HX - Past Medical History Source: patient Medical history: arthritis, hyperlipidemia, hypertension, other (diverticulosis , liver mass/abscess) Psychiatric history: no psych history - Past Surgical History Surgical History: orthopedic, other (left and right knee surgeries), other ( tonsillectomy) - Social History Occupational status: retired Current living situation: Home - Independent, With Family - Family History Brother Hx Family GI Disorders: Yes (colon polyps) Review of Systems All systems PM: reviewed and no additional remarkable complaints except as stated All systems PM: The remainder of the systems were reviewed and are negative General Surgery Exam Initial Vital Signs Temp Pulse Resp BP Pulse Ox 97.5 F L 106 20 150/74 99 11/03/17 16:55 11/03/17 16:55 11/03/17 16:55 11/03/17 16:55 11/03/17 16:55 - General physical appearance well developed, well nourished, no distress, no pain - Eyes PERRL, normal ocular movement - ENT normal mucosa, normocephalic - Neck trachea midline - Respiratory normal expansion, clear to auscultation - Cardiovascular Cardiovascular exam: Present: RRR - Abdomen Abdomen general surgery: Present: bowel sounds present, soft, distended, tender. Absent: guarding, rebound Abdominal Tenderness: Present: epigastic, RUQ, RLQ - Integumentary Integumentary general surgery: Present: warm and dry - Neurologic Present: CN 2-12 grossly intact - Musculoskeletal Present: normal posture - Psychiatric Psychiatric general surgery: Present: A&Ox3, speech is normal Exam Initial Vital Signs Temp Pulse Resp BP Pulse Ox 97.5 F L 106 20 150/74 99 11/03/17 16:55 11/03/17 16:55 11/03/17 16:55 11/03/17 16:55 11/03/17 16:55 Results - Labs 11/08/17 05:45 11/08/17 05:45 Short CBC 11/08/17 Range/Units 05:45 WBC 21.3 H (4.3-11.1) K/mcL Hgb 9.7 L (11.5-15.4) g/dL Hct 29.5 L (35.3-44.9) % Plt Count 680 H (140-400) K/mcL Neutrophils # 18.3 H (1.6-8.9) K/mcL BMP 11/08/17 Range/Units 05:45 Sodium 137 (136-145) mEq/L Potassium 3.8 (3.5-5.1) mEq/L Chloride 103 (98-107) mEq/L Carbon Dioxide 26 (23-29) mEq/L BUN 38 H (8-23) mg/dL Creatinine 1.26 H (0.60-1.20) mg/dL Glucose 96 (70-105) mg/dL Calcium 8.8 (8.6-10.3) mg/dL Vital Signs Temp Pulse Resp BP Pulse Ox 11/08/17 16:00 98.8 F 90 20 162/81 94 11/08/17 11:00 98.1 F 78 16 159/83 95 11/08/17 07:38 98.3 F 81 16 158/67 96 11/08/17 03:18 97.6 F 76 16 157/82 95 11/07/17 23:07 97.5 F L 75 16 152/76 97 11/07/17 19:13 97.9 F 81 16 144/77 96 Intake and Output 11/08/17 11/08/17 11/08/17 07:59 15:59 23:59 Intake Total 300 / 300 2670 / 2670 Output Total 505 / 505 5 / 5 300 / 300 Balance -205 / -205 2665 / 2665 -300 / -300 Intake: IV Fluids 200 / 200 1710 / 1710 0.9 % Sodium Chloride 1,000 ML 1000 / 1000 @ 3750 mls/hr IVC .Q16M ONE Rx# :[id number] 0.9 % Sodium Chloride 500 ML @ 500 / 500 1875 mls/hr IVC .Q16M ONE Rx#: [id number] Venofer 250 MG In 0.9 % Sodium 110 / 110 Chloride 250 ML @ 130 mls/hr IVPB DAILY [facility] Rx#:[id number] Flagyl Premix 500 MG/100 ML 500 100 / 100 100 / 100 mg In 100 ml @ 100 mls/hr IVPB Q8HR [facility] Rx#:[id number] Zosyn 3.375 GM In 0.9 % Sodium 100 / 100 Chloride (Mini-Bag +) 100 ML @ 25 mls/hr IVPB Q8H [facility] Rx#: [id number] Oral 100 / 100 960 / 960 Output: Urine 500 / 500 0 / 0 300 / 300 Wound Drainage 5 / 5 5 / 5 Right Upper Abdomen 5 / 5 5 / 5 Other: Meal Breakfast Percent of Meal Consumed 0% Weight 61.8 kg Patient Weight 11/08/17 23:59 Weight 61.8 kg - Imaging CT scan - abdomen: report reviewed, image reviewed CT scan - pelvis: report reviewed, image reviewed - Attending Attestation I examined this patient and my medical decision-making was reviewed with the Resident Physician. I agree with the documented findings, disposition and treatment plan as described except to the extent set forth below.
--- NOTE | 2017-11-08 18:29 | Discharge Summary ---
<Trent Avalos - Last Filed: 11/08/17 18:26> Orders not resulted at time of discharge: Pending orders 11/04/17 07:00 Culture,Anaerobic [RM] Stat Fungal Culture [MYC] Stat 11/04/17 10:30 Ova & Parasite Exam Routine 11/04/17 10:32 Pathologist Review, Body Fluid [BF] Routine 11/04/17 11:41 Culture,Blood [BC] Stat 11/04/17 15:20 Stool guiac [Occult Blood,Stool] [BF] Routine 11/05/17 13:39 Echinococcus antibody IgG Stat Miscellaneous Lab Test Stat 11/09/17 04:00 BMP [Basic Metabolic Panel] AM 0400 Complete Blood Count [HEME] AM 0400 Date of Encounter: 11/08/17 Time of Encounter: 18:27 - Discharge Diagnosis (1) Pyogenic liver abscess Priority: Primary Status: Suspected Assessment and Plan: On admission patient's liver lesions were suspected to be pyogenic liver abscess as when she underwent liver lesion biopsy there was pus seen and drain was placed. However culture of fluid taken have been negative thus far for bacteria. Fungal cultures are pending. Path result is pending. Patient is being transferred to [facility] for further analysis. Gram stain negative Patient was on Zosyn for 5 days and Flagyl for 2 days (2) Anemia Priority: Secondary Status: Acute Assessment and Plan: required thre [facility] No evidence of bleeding on exam other than bloody serosanguineous drainage in KATHE tube to Liver which at this point she is at 260 mL total. B12 and folate WNL Severely iron deficient given IV iron hgb increased from 6.4 to 9.7 during hospital stay Qualifiers: Anemia type: iron deficiency Iron deficiency anemia type: other iron deficiency Qualified Code(s): D50.8 - Other iron deficiency anemias (3) Leukocytosis Priority: Secondary Status: Acute Assessment and Plan: = Unclear etiology of leukocytosis. Qualifiers: Leukocytosis type: unspecified Qualified Code(s): D72.829 - Elevated white blood cell count, unspecified (4) Pericardial effusion without cardiac tamponade Priority: Secondary Status: Acute Assessment and Plan: No evidence of tamponade at this time. repeat Ct on 11/08/2017 shows increased effusion. Stat echo read pending. (5) Thrombocytosis Priority: Secondary Status: Acute Assessment and Plan: reactive improved will continue to follow. (6) Generalized weakness Priority: Secondary Status: Acute Assessment and Plan: Most likely related to infection, but also lack of food \Ordered nutrition consult ensure tid (7) Severe sepsis Priority: Secondary Status: Resolved Assessment and Plan: Severe sepsis, improved unclear etiology for liver lesions She did experience MAXIMUM TEMPERATURE 102.1 afebrile since 11/04 Remained with normal heart rate and normal blood pressure overnight Draining serosanguineous fluid per wound, no obvious purulence was treated with zosyn and flagyl (8) Poor appetite Priority: Secondary Status: Acute Assessment and Plan: Poor appetite, likely secondary to infection Consult to nutrition for supplementation Ensure TID added megace (9) DVT prophylaxis Priority: Secondary Status: Acute Assessment and Plan: heparin sq Hospital course: Ms. Brendan Collins is a 72 year old female presented with chief complaint of weakness on 11/03/17. Patient was seen to have fever, leukocytosis, anemia She was recently discharged from [facility] for sepsis secondary to UTI from Klebsiella. She had undergone a CT of the abdomen/pelvis previously which showed liver lesions and was scheduled for biopsy by IR outpatient. Patient had a fever of 103 was deemed septic and started on Zosyn. She underwent liver lesion biopsy and it was noticed pus draining and a drain was placed. Fluid was sent for culture, pathology. CT abdomen pelvis also showed pericardial effusion without cardiac tamponade. Patient also had recontacted thrombocytosis. Peripheral blood cultures are negative 2, liver fluid cultures negative, liver and aerobic cultures negative, urine culture negative. Lactic acid within normal limits. AFP within normal limits. Patient's anemia was worked up and found to be severely iron deficient and given IV iron as well as 1 red blood cell transfusion. On presentation her hemoglobin was 6.7 and today it is increased to 9.7. Infectious diseases consulted and reported that if this was an infectious process Gram stain and cultures would come back positive. Echinococcus and anti-amoeba histolytica serology was sent and is pending. Fungal cultures, ova and parasite of liver fluid is pending as well. Pathology is pending. Due to these results ID recommended transfer to a higher level center for further evaluation as infection is less likely in more likely this may be malignancy. Today patient complaint of right lower quadrant abdominal pain. Repeat CT showed interval increased pericardial effusion, internal increased bilateral pleural effusions, with drainage catheter within hepatic abscess with tip surrounded by hyperdense material, increase. Hepatic fluid with rim enhancement, distal appendix containing fluid with fecalith within the midportion of the appendix. Surgery was consulted and were concerned about early appendicitis. Echocardiogram was ordered to evaluate pericardial effusion but is pending. Patient at this time was normotensive. There was a discussion with family that patient will need appendectomy and if during the procedure if the evaluation of the liver resulted in further surgical intervention patient may need liver surgeon to be available which [place] does not have. Due to this [facility] was contacted and accepted the patient for transfer. - Time Spent with Patient Total time spent providing and/or coordinating discharge services: - Discharge Medications Home Medications: Acetaminophen [Pain Reliever] 1,000 mg PO BID 11/03/17 [History] Ascorbate Calcium [Vitamin C] 500 mg PO DAILY 11/03/17 [History] Aspirin [Lo-Dose Aspirin EC] 81 mg PO DAILY 11/03/17 [History] Calcium Carbonate [Calcium] 600 mg PO DAILY 11/03/17 [History] Gluc 2Kcl/Chondr/Laurence Hy/Hy AC [Glucosamine & Chondroitin Cap] 2 cap PO BID [History] Multivitamin [One Daily Essential] 1 tab PO DAILY 11/03/17 [History] Allergies/Adverse Reactions: 3 Allergy/AdvReac Type Severity Reaction Status Date / Time cephalexin Allergy Hives Verified 04/13/16 10:56 Date of admission: 11/04/17 06:25 Primary care physician: Juliana Leal Consults: 11/04/17 10:17 Consult to Infectious Diseases [CONS] Routine Consulting Provider: Infectious [facility] [place] Reason for Consult: Liver abscess Time Notified: 10:15 Call Completed: Yes 11/05/17 08:38 Consult to Nutrition [CONS] Routine Comment: Poor appetite for weeks, cannot stomach food well Consulting Provider: NUTRITION Reason for Dietary Consult: PO Supplementation 11/08/17 13:03 Consult to Surgery [CONS] Routine Consulting Provider: [facility] Reason for Consult: appendecitis Call Completed: Yes Discharging clinician: Trent Martínez Bailey - Constitutional Vitals: Temp Pulse Resp BP Pulse Ox 98.8 F 90 20 162/81 94 11/08/17 16:00 11/08/17 16:00 11/08/17 16:00 11/08/17 16:00 11/08/17 16:00 General appearance: Present: cooperative, A&O X 3, pleasant, answers questions appropriately - Other Additional findings: General: without distress Heart: Regular rate and rhythm with no murmur Lungs: Clear to auscultation bilaterally Abdomen: Soft with right lower quadrant tenderness, nondistended positive bowel sounds. Right upper quadrant KATHE drain with serosanguineous bloody fluid. Skin: warm and dry, absent rash Extremities: 1+ pedal edema b/l Neuro: alert oriented x2 Vascular: Pedal and radial pulses 2 out of 4 - Patient Status Disposition: Transfer Short-Term Hosp Condition: Serious Functional capacity at discharge: bed bound Overall status at discharge: patient is not back to baseline - Discharge Instructions Follow Up With: Juliana Leal MD [Primary Care Provider] - - Diet and Activity Diet: regular diet - VTE Reasons for not Prescribing Prophylaxis: Medical contraindication (Anemia, Thrombocytopenia) Documentation of Mechanical Device: Intermittent pneumatic compression device <Hugh Herrera - Last Filed: 11/08/17 18:53> Orders not resulted at time of discharge: Pending orders 11/04/17 07:00 Culture,Anaerobic [RM] Stat Fungal Culture [MYC] Stat 11/04/17 10:30 Ova & Parasite Exam Routine 11/04/17 10:32 Pathologist Review, Body Fluid [BF] Routine 11/04/17 11:41 Culture,Blood [BC] Stat 11/04/17 15:20 Stool guiac [Occult Blood,Stool] [BF] Routine 11/05/17 13:39 Echinococcus antibody IgG Stat Miscellaneous Lab Test Stat 11/09/17 04:00 BMP [Basic Metabolic Panel] AM 0400 Complete Blood Count [HEME] AM 0400 Date of Encounter: 11/08/17 - Discharge Diagnosis (1) Pyogenic liver abscess Status: Suspected (2) Anemia Status: Acute Qualifiers: Anemia type: iron deficiency Iron deficiency anemia type: other iron deficiency Qualified Code(s): D50.8 - Other iron deficiency anemias (3) Leukocytosis Status: Acute Qualifiers: Leukocytosis type: unspecified Qualified Code(s): D72.829 - Elevated white blood cell count, unspecified (4) Pericardial effusion without cardiac tamponade Status: Acute (5) Thrombocytosis Status: Acute (6) Generalized weakness Status: Acute (7) Severe sepsis Status: Resolved (8) Poor appetite Status: Acute (9) DVT prophylaxis Status: Acute Hospital course: Ms. Brendan Collins is a 72 year old female - Time Spent with Patient Total time spent providing and/or coordinating discharge services: 42min Date of admission: 11/04/17 06:25 Primary care physician: Juliana Leal Consults: 11/04/17 10:17 Consult to Infectious Diseases [CONS] Routine Consulting Provider: Infectious [facility] [place] Reason for Consult: Liver abscess Time Notified: 10:15 Call Completed: Yes 11/05/17 08:38 Consult to Nutrition [CONS] Routine Comment: Poor appetite for weeks, cannot stomach food well Consulting Provider: NUTRITION Reason for Dietary Consult: PO Supplementation 11/08/17 13:03 Consult to Surgery [CONS] Routine Consulting Provider: [facility] Reason for Consult: appendecitis Call Completed: Yes - Constitutional Vitals: Temp Pulse Resp BP Pulse Ox 98.8 F 90 20 162/81 94 11/08/17 16:00 11/08/17 16:00 11/08/17 16:00 11/08/17 16:00 11/08/17 16:00 - Attending Attestation I examined this patient and my medical decision-making was reviewed with the Resident Physician on 11/08/17. I agree with the documented findings, disposition and treatment plan as described except to the extent set forth below. Ms Brendan Collins has been admitted for fever and leukocytosis. She had biopsy of liver lesion and pus returned concerning for abscess. She continues to have leukocytosis as well as abd pain. All cultures negative. CT today questions appendicitis as well as worsening of other issues. She is going to be transferred to [facility] for hepatology and further care. Exam Alert Comfortable Mucus membranes dry Heart not tachy No wheeze Some RLQ discomfort Plan D/C to [facility] for specialized care.
[2017-11-08 20:03] VITALS: BP 159/85
== END 2017-11-08 23:40 | disposition short-term general hospital (02) | DRG 872 ==
LOC: EMEROO 16:52 → 2SOUTHHOLD 16:52 → SUATTDRO 11-04 06:25 → 3ANU 11-05 18:22
PROVIDERS: ADMIT Internal Medicine; ATTEND Internal Medicine
PROC: IRDRAIN (2017-11-04 13:15)

== ENCOUNTER 2019-09-10 18:15 | Observation (INO) ==
[2019-09-10] MEDS ORDERED: Aspirin 81 MG TAB.CHEW PO STA (18:50)
[2019-09-10] MEDS ORDERED: 0.9 % Sodium Chloride 250 ML IVC ONE (19:10)
[2019-09-10] MEDS ORDERED: 0.9 % Sodium Chloride 1,000 ML IVC ONE (19:11)
[2019-09-10] MEDS: 0.9 % Sodium Chloride 1,000 ML IVC SCH ×2 (19:33→21:22)
[2019-09-10] MEDS ORDERED: Naloxone 0.4 MG/ML INJ IVP PRN (20:56)
[2019-09-10] MEDS ORDERED: *HR* Heparin 5,000 UNIT/ML VIAL IVP ONE (20:56)
[2019-09-10] MEDS ORDERED: *HR* Heparin 5,000 UNIT/ML VIAL IVP PRN ×2 (20:56)
[2019-09-10] MEDS ORDERED: Heparin 25,000 UNIT/250 ML D5W 25,000 UNIT/250 ML IV.SOLN IVC SCH (21:00)
[2019-09-10 21:48] LABS: Mean Platelet Volume 9.7 fL (9.4-12.4)
[2019-09-10 21:49] LABS: Hematocrit 25.1 % (35.3-44.9); Hemoglobin 8.6 g/dL (11.5-15.4); Mean Corpuscular HGB Conc 34.3 g/dL (31.6-35.5); Mean Corpuscular Hemoglobin 32.5 pg (28.0-33.3); Mean Corpuscular Volume 94.7 fL (83.0-100.0); Platelet Count 541 K/mcL (140-400); Red Blood Count 2.65 M/mcL (3.82-4.97)
[2019-09-10] MEDS ORDERED: Cefepime HCl 2,000 MG in Water for inj. (sterile) 20 ML IVP SCH (22:00)
[2019-09-10 22:04] LABS: Heparin anti-factor XA UFH < 0.04 IU/mL (0.30-0.70); INR 1.5; Prothrombin Time 16.5 Seconds (9.4-12.1)
[2019-09-11] MEDS: MetroNIDAZOLE 500 MG/100 ML 500 MG/100 ML BAG IVPB SCH ×2 (00:57→06:38)
[2019-09-11 04:08] LABS: Monocytes % 3.9 %
[2019-09-11 04:09] LABS: Basophils # 0.1 K/mcL (0.0-0.2); Basophils % 0.5 %; Hemoglobin 8.9 g/dL (11.5-15.4); Immature Granulocytes % 8.4 % (0-4); Lymphocytes % 3.7 %; Mean Corpuscular Hemoglobin 31.7 pg (28.0-33.3); Mean Corpuscular Volume 96.1 fL (83.0-100.0); Neutrophils # 21.6 K/mcL (1.6-8.9); Platelet Count 608 K/mcL (140-400); Red Blood Count 2.81 M/mcL (3.82-4.97); Segmented Neutrophils % 83.5 %; White Blood Count 25.9 K/mcL (4.3-11.1)
[2019-09-11 04:21] LABS: Albumin 2.8 g/dL (3.5-5.7); Albumin/Globulin Ratio 0.8 (1.1-2.2); Bilirubin,Total 1.7 mg/dL (0.3-1.0); Calcium 8.7 mg/dL (8.6-10.3); Globulin 3.6 g/dL (2.4-3.5); Magnesium 2.2 mg/dL (1.6-2.6); Phosphorous 3.5 mg/dL (2.7-4.5); Potassium 3.4 mEq/L (3.5-5.1); Total Protein 6.4 g/dL (6.4-8.9)
[2019-09-11] MEDS ORDERED: 0.9 % Sodium Chloride 1,000 ML IVC SCH (05:00)
[2019-09-11 05:26] LABS: Platelet Estimate Increased (Normal)
[2019-09-11] MEDS ORDERED: Pantoprazole 40 MG VIAL IVP SCH (06:00)
[2019-09-11 06:59] VITALS: BP 126/70
[2019-09-11] MEDS ORDERED: cefTRIAXone 1,000 MG in Water for inj. (sterile) 10 ML IVP SCH (09:00)
[2019-09-11] MEDS ORDERED: Aminoglycoside Consult 1 EACH MC ONE (10:25)
[2019-09-11] MEDS ORDERED: Cefepime HCl 2,000 MG in Water for inj. (sterile) 20 ML IVP SCH (22:00)
== END 2019-09-11 10:26 | disposition short-term general hospital (02) ==
LOC: EMEROOARM 18:15 → 2ANU 18:15
PROVIDERS: ADMIT Internal Medicine; ATTEND Internal Medicine